=== PATIENT | female | born 1995 | race Caucasian/White ===

== ENCOUNTER → 2017-06-22 09:56 | Outpatient (CLI) | payer OTHER, MEDICAID, SELFPAY ==
[2017-06-22 11:28] LABS: Thyroid Stimulating Hormone 0.93 uIU/ml (0.358-3.740)
== END ==
PROVIDERS: Visit Provider Obstetrics & Gynecology
DX: O92.6 Galactorrhea (principal)
CPT/HCPCS: 36415; 84146; 84443

== ENCOUNTER → 2017-07-07 09:54 | Outpatient (CLI) | payer OTHER, SELFPAY ==
--- NOTE | 2017-07-07 09:56 | US_ITS ---
US breast RT complete INDICATION: Right breast pain and tenderness ORDERING PHYSICIAN: Jonathan Delgado MD PATIENT AGE: 21 years FINDINGS: There is a 7 mm and a 5 mm benign-appearing cysts at the 10:00 region. No solid lesions evident. No suspicious lesions apparent. Small nodes are present in the axilla. IMPRESSION: 7 mm and 5 mm benign-appearing cyst BI-RADS Category: 2 Benign Finding(s) Follow-up suggested as clinically warranted (A letter has been sent to the patient regarding results of the study.)
== END ==
PROVIDERS: Family Provider Family Medicine; PCP Family Medicine; Visit Provider Obstetrics & Gynecology
DX: N64.4 Mastodynia (principal)
CPT/HCPCS: 76641

== ENCOUNTER 2019-06-16 12:17 | Outpatient (CLI) | payer OTHER, SELFPAY ==
[2019-06-16 12:33] VITALS: BMI 27.4
== END 2019-06-16 12:53 | disposition home or self-care (01) ==
LOC: UTC.OUT 12:18
PROVIDERS: PCP Internal Medicine Adolescent Medicine; Visit Provider Nurse Practitioner
DX: Z11.1 Encounter for screening for respiratory tuberculosis (principal)
CPT/HCPCS: 86580

== ENCOUNTER 2019-11-06 01:05 | Emergency (ER) | payer OTHER, SELFPAY ==
[2019-11-06 01:20] VITALS: BP 135/98; PULSE 88; RESP 16; TEMP 36.7; O2SAT 97; BMI 25.7
--- NOTE | 2019-11-06 01:30 | CT_ITS ---
PROCEDURE: CT ABDOMEN PELVIS W CON CLINICAL INDICATION: N/V Nausea and vomiting COMPARISON: No exams were available for comparison TECHNIQUE: IV Contrast: 75ML OPTIRAY 350 Oral Contrast None Axial images obtained with sagittal and coronal reformats. All CT scans at the facility use one or more dose reduction, viz: automated exposure control, ma/kV adjustment per patient size (including targeted exams where dose is matched to indication, i.e. head), or iterative reconstruction technique. FINDINGS: LOWER THORAX: There is a 3 mm noncalcified nodule in the right middle lobe. Minimal atelectatic or fibrotic changes are present in the lung bases. ABDOMEN & PELVIS: The liver, spleen, adrenal glands, pancreas, and kidneys have an unremarkable appearance. No radiopaque gallstones. No intestinal obstruction or free air. No evidence of appendicitis or diverticulitis. The low-density changes of the endometrium are slightly prominent. Correlation with patient's phase of menstruation suggested. There are few small inguinal nodes. There is minimal stranding of the subcutaneous fat in the lower anterior abdominal wall which may be related to prior . The gastric mucosa slightly prominent in the cardia and fundus of the stomach which is nonspecific and may be due to nondistention. There is suggestion of minimal mucosal thickening involving the terminal ileum. No acute bony findings. There is minimal lumbar curvature convex left. There is a tiny umbilical hernia containing fat. IMPRESSION: 1. Questionable minimal mucosal thickening involving the terminal ileum and gastric fundus and cardia. Gastroenteritis is considered. 2. 3 mm nodule right middle lobe. If the patient does not have known cancer, follow-up should be based on clinical information because of low risk cancer in this age group. This cyst 3. Is no evidence of renal or ureteral calculi. No evidence of appendicitis Dictated b Kaden Mason MD 11/06/2019 06:11 Kaden Mason MD in [place] 11/06/2019 06:11
[2019-11-06 01:34] LABS: Microscopic, Urine URINE MICROSCOPIC (MICROSCOPIC)
[2019-11-06 01:37] LABS: Appearance,Urine CLEAR (Clear); Basophils % 0.4 % (0.1-2.0); Bilirubin,Urine Negative (Negative); Blood, Urine Negative (Negative); Color,Urine YELLOW (Yellow); Eosinophils # 0.2 K/mm3 (0.0-0.4); Eosinophils % 1.7 % (0.1-12.0); Glucose,Urine (UA) Negative (Negative); Hematocrit 42.2 % (37.0-47.0); Hemoglobin 15.3 g/dL (12.2-16.2); Ketones,Urine Negative (Negative); Leukocyte Esterase,Urine Negative (Negative); Lymphocytes # 3.2 K/mm3 (0.7-4.5); Lymphocytes % 30.4 % (10-50); Mean Corpuscular HGB Conc 36.2 g/dL (31.8-35.4); Mean Corpuscular Hemoglobin 30.6 pg (27.0-31.2); Mean Corpuscular Volume 84.5 fl (81-99); Mean Platelet Volume 7.9 fl (7.4-10.4); Monocytes # 0.4 K/mm3 (0.1-1.0); Neutrophils # 6.8 K/mm3 (1.8-7.8); Neutrophils % 63.5 % (37.0-80.0); Nitrate,Urine Negative (Negative); Platelet Count 293 K/mm3 (142-424); Protein,Urine Negative (Negative); Red Blood Count 4.99 M/mm3 (4.20-5.40); Red Cell Distribution Width 12.8 % (11.5-17.5); Urobilinogen,Urine 0.2 EU/dl (0.2); White Blood Count 10.7 K/mm3 (4.8-10.8)
--- NOTE | 2019-11-06 01:37 | HMH.EDNVD ---
ED Disposition Clinical Impression: Chills without fever Disposition: Home, Self-Care Condition on Discharge: Good Instructions: DI for Nausea -- Adult Additional Instructions: fluids and call pcp for follow up Referrals: Alin Cole MD [Primary Care Provider] - - Critical Care Critical Care Time: No Attestation: On , the high probability of a clinically significant, sudden or life threatening deterioration of the following system(s) required my full and direct attention, intervention and personal management. The time I documented below is in addition to time spent performing reported procedures but includes the following listed in this critical care notation. Medical Decision Making - Medical Records Medical records reviewed: Yes: I reviewed the patient's medical records. - Mayito Inquiry Pt receiving controlled substance: No Vital Signs: 11/06/19 01:20 Temperature 98.1 F Temperature Source Oral Pulse Rate [Right Brachial] 88 Respiratory Rate 16 Blood Pressure [Right Arm] 135/98 H Blood Pressure Mean [Right Arm] 110 Blood Pressure Source [Right Arm] Automatic Cuff Blood Pressure Position [Right Arm] Sitting 02 Sat by Pulse Oximetry 97 Oxygen Delivery Method Room Air - Lab Data Lab results reviewed: Yes: I reviewed the patient's lab results. Lab Results 11/06/19 01:20: Urine Color Yellow, Urine Appearance Clear, Urine pH 7.0, Ur Specific [place] 1.010, Urine Protein Negative, Urine Glucose (UA) Negative, Urine Ketones Negative, Urine Blood Negative, Urine Nitrate Negative, Urine Bilirubin Negative, Urine Urobilinogen 0.2, Ur Leukocyte Esterase Negative, Urine WBC 3-5, Ur Squamous Epith Cells 3-5, Urine Bacteria 1+ 11/06/19 01:20: WBC 10.7, RBC 4.99, Hgb 15.3, Hct 42.2, MCV 84.5, MCH 30.6, MCHC 36.2 H, RDW 12.8, Plt Count 293, MPV 7.9, Neut % (Auto) 63.5, Lymph % (Auto) 30.4, [place] % (Auto) 4.0, Eos % (Auto) 1.7, Baso % (Auto) 0.4, Neut # (Auto) 6.8, Lymph # (Auto) 3.2, [place] # (Auto) 0.4, Eos # (Auto) 0.2, Baso # (Auto) 0.0 08/11/20 01:20: Urine HCG, Qual Negative 11/06/19 01:20: Sodium 140, Potassium 3.5, Chloride 100, Carbon Dioxide 28, Anion Gap 15.5 H, BUN 12, Creatinine 0.80, Estimated Creat Clear 114, Estimated GFR 87, Est GFR ( Amer) 105, Glucose 97, Calcium 9.5, Total Bilirubin 0.6, AST 24, ALT 16, Alkaline Phosphatase 77, Total Protein 8.6 H, Albumin 4.8, Globulin 3.8 H, Albumin/Globulin Ratio 1.3, Amylase 131 H, Lipase 193 11/06/19 01:20: ESR 22 H 11/06/19 01:20: C-Reactive Protein 1.1 Result diagrams: 11/06/19 01:20 11/06/19 01:20 Orders (Tests/Meds): ED MEDICATIONS Discontinued Medications Generic Name Dose Route Start Last Admin Trade Name Freq PRN Reason Stop Dose Admin Ioversol 75 ml 11/06/19 03:03 11/06/19 03:04 Rad-Optiray 350 100ml Vial IV 11/06/19 03:04 75 ml ONCE ONE Administration Protocol Sodium Chloride 10 ml 11/06/19 03:03 11/06/19 03:04 Rad-Saline Flush 10ml Syringe IV 11/06/19 03:04 10 ml ONCE ONE Administration ORDERS Category Date Time Status CT abdomen pelvis w con Stat Cat Scan 11/06/19 01:30 Taken Urine Culture Stat Micro 11/06/19 01:46 Ordered - CT Data CT Scan: Abdomen, Pelvis Time Received: 03:[address] Reviewed: Yes: I have viewed the radiologist's interpretation Preliminary Findings: Normal/NAD Nausea/Vomiting/Diarrhea HPI - General Chief complaint: Nausea/Vomiting/Diarrhea Stated complaint: Vomiting,Dizziness Time Seen by Provider: 11/06/19 01:30 Mode of Arrival: Family Vehicle Source of Information: Patient, Spouse, Medical Record Limitations: No Limitations Description of Symptoms (Recalled from ER Triage Doc. by RN): PT HAS INTERMITTENTLY HAD N/V RECENTLY DURING THE LAST WEEK. ACCORDING TO PATIENT, SHE HAS HAD NO PAIN, VOIDS EASILY AND NO ISSUES WITH BM. CURRENTLY ACTIVELY TRYING TO 'GET ' BY NOT USING BC METHODS. DIZZINESS REPORTED, DENIES EAR PAIN OR DISCOMFORT. HAD AN EPISODE OF CHIL
[2019-11-06 01:41] LABS: Alanine Aminotransferase 16 U/L (12-78); Albumin Level 4.8 g/dl (3.5-5.0); Albumin/Globulin Ratio 1.3 (1.1-1.8); Alkaline Phosphatase 77 U/L (38-126); Amylase 131 U/L (30-110); Anion Gap 15.5 mEq/L (5-15); Aspartate Amino Transferase 24 U/L (14-36); Bilirubin,Total 0.6 mg/dl (0.2-1.3); Blood Urea Nitrogen 12 mg/dl (7-17); Calcium 9.5 mg/dl (8.4-10.2); Carbon Dioxide 28 mmol/L (22.0-30.0); Chloride 100 mmol/L (98-107); Creatinine Clearance Estimated 114 mL/min (50-200); Estimated Glomerular Filt Rate 87 ml/min (>60); GFR (African American) 105 ML/MIN (>60); Globulin 3.8 g/dL (1.3-3.2); Glucose 97 mg/dl (74-100); Lipase 193 U/L (23-300); Potassium 3.5 mmoL/L (3.5-5.1); Sodium 140 mmol/L (136-145); Total Protein,Serum 8.6 g/dl (6.3-8.2)
[2019-11-06 01:45] LABS: Bacteria,Urine 1+ /lpf; Urine Pregnancy, HCG Qual. Negative (Negative)
[2019-11-06 01:56] LABS: C-Reactive Protein 1.1 mg/L (0-4)
[2019-11-06 03:01] LABS: Erythrocyte Sedimentation Rate 22 mm/hr (0-20)
[2019-11-06 03:17] VITALS: BP 121/75; PULSE 69; RESP 16; TEMP 536.6; TEMP 998; O2SAT 95
== END 2019-11-06 03:19 | disposition home or self-care (01) ==
PROVIDERS: Emergency Provider Emergency Medicine; PCP Internal Medicine Adolescent Medicine
DX: R68.83 Chills (without fever) (principal); R11.2 Nausea with vomiting, unspecified; R42 Dizziness and giddiness; Z88.0 Allergy status to penicillin
CPT/HCPCS: 74177; 80053; 81001; 81025; 82150; 83690; 85025; 85651; 86140; 87086; 99283; Q9967

== ENCOUNTER → 2020-10-07 17:32 | Outpatient (CLI) | payer OTHER, SELFPAY ==
[2020-10-07 19:31] LABS: HCG,Quantitative 1108 mIU/ml (0-5.42)
== END ==
PROVIDERS: Visit Provider Obstetrics & Gynecology
DX: Z32.01 Encounter for pregnancy test, result positive (principal)
CPT/HCPCS: 84702

== ENCOUNTER → 2020-10-09 14:18 | Outpatient (CLI) | payer OTHER, SELFPAY ==
[2020-10-09 15:32] LABS: HCG,Quantitative 2468 mIU/ml (0-5.42)
== END ==
PROVIDERS: Visit Provider Obstetrics & Gynecology
DX: Z34.90 Encounter for supervision of normal pregnancy, unspecified, unspecified trimester (principal)
CPT/HCPCS: 36415; 84702

== ENCOUNTER → 2020-10-20 13:35 | Outpatient (CLI) | payer OTHER, SELFPAY ==
--- NOTE | 2020-10-20 13:36 | US_ITS ---
PROCEDURE: US OB <= 14 WEEKS FETUS CLINICAL INDICATION: Dates Early Ob ultrasound for dates COMPARISON: No exams were available for comparison FINDINGS: An intrauterine gestational sac is present with a pole with a crown-rump length of 0.23cm correlating to gestational age of 5weeks 6days. heart tones are not demonstrated. Yolk sac is noted. Unremarkable adnexa IMPRESSION: Intrauterine gestational sac noted with suspected pole measuring 5 weeks 6 days but no heart tones. Cannot confirm viability at this. Follow-up ultrasound and beta HCG suggested. Estimated due date by Ultrasound is 06/16/2021 Dictated by: Kaden Mason MD 10/20/2020 18:12 Kaden Mason MD in [place] 10/20/2020 18:12
== END ==
PROVIDERS: PCP Internal Medicine Adolescent Medicine; Visit Provider Obstetrics & Gynecology
DX: Z34.90 Encounter for supervision of normal pregnancy, unspecified, unspecified trimester (principal); O26.899 Other specified pregnancy related conditions, unspecified trimester; R10.9 Unspecified abdominal pain
CPT/HCPCS: 36415; 76801; 84702

== ENCOUNTER → 2020-11-07 12:53 | Outpatient (CLI) | payer OTHER, SELFPAY ==
--- NOTE | 2020-11-07 12:53 | US_ITS ---
PROCEDURE: US OB <= 14 WEEKS FETUS CLINICAL INDICATION: dates Evaluate for dates and viability COMPARISON: US US OB <= 14 WEEKS FETUS from 10/20/2020 FINDINGS: There is an intrauterine gestational sac once again noted. Yolk sac is noted but appears collapsed. There may be a small pole with a crown-rump length 0.21 cm correlating to gestational age of 5 weeks 6 days. heart tones are however not identified. Cannot confirm viability. Please correlate with beta HCG levels. No adnexal mass or cul-de-sac fluid. IMPRESSION: There is an intrauterine gestational sac with a partially collapsed yolk sac. What appears to represent a pole is noted measuring 5 weeks 6 days but no heart tones are present. Cannot confirm viability. Dictated by: Kaden Mason MD 11/07/2020 16:14 Kaden Mason MD in [place] 11/07/2020 16:14
== END ==
PROVIDERS: PCP Internal Medicine Adolescent Medicine; Visit Provider Obstetrics & Gynecology
DX: Z34.90 Encounter for supervision of normal pregnancy, unspecified, unspecified trimester (principal)
CPT/HCPCS: 36415; 76801; 84702

== ENCOUNTER → 2020-11-12 10:52 | Outpatient (CLI) | payer OTHER, SELFPAY ==
[2020-11-12 13:14] LABS: Basophils % 0.4 % (0.1-2.0); Eosinophils # 0.1 K/mm3 (0.0-0.4); Eosinophils % 0.8 % (0.1-12.0); Hematocrit 40.8 % (37.0-47.0); Hemoglobin 13.9 g/dL (12.2-16.2); Lymphocytes # 1.6 K/mm3 (0.7-4.5); Lymphocytes % 21.5 % (10-50); Mean Corpuscular HGB Conc 34.1 g/dL (31.8-35.4); Mean Corpuscular Hemoglobin 29.2 pg (27.0-31.2); Mean Corpuscular Volume 85.6 fl (81-99); Mean Platelet Volume 8.6 fl (7.4-10.4); Monocytes # 0.3 K/mm3 (0.1-1.0); Monocytes % 3.3 % (1.7-9.3); Neutrophils # 5.7 K/mm3 (1.8-7.8); Platelet Count 294 K/mm3 (142-424); Red Blood Count 4.76 M/mm3 (4.20-5.40); Red Cell Distribution Width 12.8 % (11.5-17.5); White Blood Count 7.7 K/mm3 (4.8-10.8)
== END ==
PROVIDERS: Visit Provider Obstetrics & Gynecology
DX: Z01.812 Encounter for preprocedural laboratory examination (principal); Z11.52 Encounter for screening for COVID-19; O02.1 Missed abortion
CPT/HCPCS: 36415; 85025; 86850; U0003

== ENCOUNTER 2020-11-14 09:54 | Day surgery (SDC) | payer OTHER, SELFPAY ==
[2020-11-11 11:34] VITALS: BMI 23.8
[2020-11-14] VITALS (8 sets, daily range): BP systolic 102–125; BP diastolic 56–75; PULSE 70–81; RESP 16–20; TEMP 36.4–37.1; O2SAT 87–100
--- NOTE | 2020-11-14 10:01 | US_ITS ---
PROCEDURE: US TRANSVAGINAL CLINICAL INDICATION: missed COMPARISON: US US OB <= 14 WEEKS FETUS from 11/07/2020 FINDINGS: The uterus is retroverted and contains a gestational sac with a pole. The crown-rump length is 3.6 mm correlating to gestational age of 6 weeks 1 day. The sac has more of a teardrop shaped than the normal round shape. No heart tones are evident. There is heterogeneous echogenicity along the anterior aspect of the sac and may be due to subchorionic hemorrhage. Unremarkable adnexa IMPRESSION: Nonviable intrauterine gestation with some subchorionic hemorrhage Dictated by: Kaden Mason MD 11/14/2020 13:10 Kaden Mason MD in [place] 11/14/2020 13:10
--- NOTE | 2020-11-14 11:45 | HMH.ANESCL ---
[facility] Anesthesia Checklist - Patient Identification Patient Identification: Arm Band - Structural Data Admitted From: Home Planned Operative Procedure/s: D&C with Berkely Suction Consent for Planned Operative Procedure(s) Verified: Yes Verified Documents: Surgical Consent, History and Physical - NPO Status Verified Time NPO: 00:00 - Additional verifications Anesthesia Reactions: No Hx Blood Transfusions: No Blood Transfusion Reaction: No - Airway Assessment C-Spine Mobility Assessed: Yes (mp2) TMJ Mobility Assessed: Yes Dentition: Good Dentition - Neurological Assessment Level of Consciousness: Awake, Alert - Anesthesia Plan Anesthesia Risk discussed: Yes Anesthesia Plan: Verified ASA Class: I Anesthesia Type: General [facility] History I have reviewed the patient's past medical history: Yes Medical History: Reports:: Depression Denies:: Cancer, Diabetes Mellitus Type 1, Diabetes Mellitus Type 2, Internal Pacemaker, MRSA, Seizures *Have you ever received a pneumonia vaccine?: No *Have you received a flu vaccine this season?: No Other Medical History: Denies: Blood Transfusion Reaction Anesthesia experience/problems:: nac Other Surgeries: Yes: , Other. No: Pacemaker Amputation: No Fractures: No - *Social History Last grade of school completed: High school graduate Smoking Status: Never smoker Alcohol Intake: current Alcohol Intake Frequency:: holidays/special occasions only Substance Use Type: denies use *Occupational Status:: employed Housing: house Household Members: spouse, family, children *Travel in the last 8 weeks: None - Psychiatric History Pschychiatric History:: Reports:: Depression Family Hx:: Hypertension
--- NOTE | 2020-11-14 13:18 | HMH.OPNOTE ---
Date of procedure: 11/14/20 Pre-op Diagnosis:: missed , 5 07/02 Post-op Diagnosis:: same Procedure performed:: Suction Dilation and Curettage Surgeon:: Brittaney Bella MD PRODUCTION SUPPORT SPECIALIST:: Braeden Hernandez Anesthesia: GETA Estimated blood loss (mL): 5 Operative findings:: uterine contents consistent with products of conception Operative note:: The patient was taken to the OR and general anesthesia administered without difficulty. She was prepped and draped in lithotomy position. Wade retractors were used to visualize the cervix and a single tooth tenaculum placed on the anterior lip of the cervix. The cervix was passively dilated until it could accomodate the suction curette. A size # 7 curved curette was used to evacuate the contents of the uterus. Once the products of conception had been evacuated, sharp curettage was used to ensure that no products remained within the uterine cavity. All instruments were then removed from the patients vagina, she was taken out of lithotomy position, awakened from anesthesia and taken to the PACU in stable condition. EBL: 5cc Condition: stable Disposition: PACU Specimens:: products of conception Complications:: none
--- NOTE | 2020-11-14 13:26 | P.PN_ITS ---
[facility] Anesthesia Record Part I Intake, IV Amount: 1,000 Estimated blood loss (mL): 5 Urine output (mL): 0 Blood Pressure: 104/60 SaO2: 93 Pulse Rate: 77 Respiratory Rate: 16 Temperature: 98 F Patient is:: Drowsy, Stable Stable to PACU at:: 13:10
--- NOTE | 2020-11-16 10:59 | P.PN_ITS ---
[facility] Anesthesia Record Part II Discharge Time: 13:40 Destination: Surgical Day Care (OP Surgery) PACU nurse assessment reviewed?: Yes Patient Condition:: Good Anesthesia Complications:: None Swallowing reflex intact?: Yes Cyanosis?: No Blood Pressure: 121/75 Pulse Rate: 78 Temperature: 98.2 F Mental Status: Alert & Oriented Pain level:: 2 Nausea and/or vomitting:: None Intake, IV Amount: 30
[2020-11-16 11:00] VITALS: BP 121/75; PULSE 78; TEMP 36.8
== END 2020-11-14 14:36 | disposition home or self-care (01) ==
LOC: OR 09:55
PROVIDERS: PCP Internal Medicine Adolescent Medicine; Visit Provider Obstetrics & Gynecology
PROC: (CPT 59820; principal; 2020-11-14 12:30)
DX: O02.1 Missed abortion (principal); N96 Recurrent pregnancy loss; Z98.891 History of uterine scar from previous surgery
CPT/HCPCS: 59820; 76830; J2405

== ENCOUNTER → 2020-11-18 14:50 | Outpatient (CLI) | payer OTHER, SELFPAY ==
[2020-11-18 15:09] LABS: Basophils % 0.8 % (0.1-2.0); Eosinophils # 0.2 K/mm3 (0.0-0.4); Eosinophils % 3.6 % (0.1-12.0); Hematocrit 35.9 % (37.0-47.0); Hemoglobin 12.2 g/dL (12.2-16.2); Lymphocytes # 1.5 K/mm3 (0.7-4.5); Lymphocytes % 29.6 % (10-50); Mean Corpuscular HGB Conc 34.1 g/dL (31.8-35.4); Mean Corpuscular Hemoglobin 30.2 pg (27.0-31.2); Mean Corpuscular Volume 88.5 fl (81-99); Mean Platelet Volume 8.5 fl (7.4-10.4); Monocytes # 0.3 K/mm3 (0.1-1.0); Neutrophils # 3.1 K/mm3 (1.8-7.8); Platelet Count 286 K/mm3 (142-424); Red Blood Count 4.05 M/mm3 (4.20-5.40); Red Cell Distribution Width 12.7 % (11.5-17.5)
== END ==
LOC: LAB 14:51 → LAB.DROPOF 14:51
PROVIDERS: Visit Provider Obstetrics & Gynecology
DX: O02.1 Missed abortion (principal)
CPT/HCPCS: 85025

== ENCOUNTER 2023-03-30 10:43 | Emergency (ER) | payer OTHER, SELFPAY ==
[2023-03-30 10:45] VITALS: BP 127/67; PULSE 87; RESP 20; TEMP 36.8; O2SAT 97; BMI 23.0
--- NOTE | 2023-03-30 10:54 | PC.NURSE ---
Dr. Cutler at to speak with pt/
[2023-03-30 11:17] LABS: Microscopic, Urine URINE MICROSCOPIC (MICROSCOPIC)
[2023-03-30 11:25] LABS: Alanine Aminotransferase 19 U/L (12-78); Albumin Level 4.1 g/dl (3.5-5.0); Albumin/Globulin Ratio 1.3 (1.1-1.8); Alkaline Phosphatase 50 U/L (38-126); Anion Gap 9.6 mEq/L (5-15); Aspartate Amino Transferase 27 U/L (14-36); Bilirubin,Total 0.5 mg/dl (0.2-1.3); Blood Urea Nitrogen 7 mg/dl (7-17); Calcium 8.4 mg/dl (8.4-10.2); Carbon Dioxide 24 mmol/L (22.0-30.0); Chloride 105 mmol/L (98-107); Creatinine Clearance Estimated 110 mL/min (50-200); Estimated Glomerular Filt Rate 99 ml/min (>60); GFR (African American) 120 ML/MIN (>60); Globulin 3.1 g/dL (1.3-3.2); Glucose 119 mg/dl (74-100); Lipase 72 U/L (23-300); Potassium 3.6 mmoL/L (3.5-5.1); Sodium 135 mmol/L (136-145); Total Protein,Serum 7.2 g/dl (6.3-8.2)
[2023-03-30 11:26] LABS: Basophils # 0.1 K/mm3 (0-0.2); Basophils % 0.5 % (0.1-2.0); Eosinophils # 0.1 K/mm3 (0.0-0.4); Eosinophils % 0.8 % (0.1-12.0); Hematocrit 39.3 % (37.0-47.0); Hemoglobin 13.1 g/dL (12.2-16.2); Lymphocytes # 1.9 K/mm3 (0.7-4.5); Mean Corpuscular HGB Conc 33.3 g/dL (31.8-35.4); Mean Corpuscular Hemoglobin 29.6 pg (27.0-31.2); Mean Corpuscular Volume 88.7 fl (81-99); Mean Platelet Volume 9.1 fl (7.4-10.4); Monocytes # 0.3 K/mm3 (0.1-1.0); Monocytes % 3.6 % (1.7-9.3); Neutrophils # 6.6 K/mm3 (1.8-7.8); Neutrophils % 74.1 % (37.0-80.0); Platelet Count 253 K/mm3 (142-424); Red Blood Count 4.43 M/mm3 (4.20-5.40); Red Cell Distribution Width 13.2 % (11.5-17.5)
[2023-03-30 11:30] LABS: C-Reactive Protein 3.3 mg/L (0-4)
[2023-03-30 11:32] LABS: Bacteria,Urine 1+ /lpf; RBC,Urine Occasional #/hpf (0-3); Squamous Epithelial Cell,Urine 20-50 #/hpf (0-5); WBC,Urine 20-50 #/hpf (0-3)
--- NOTE | 2023-03-30 11:42 | ED_ITS ---
Discharge Plan Disposition Patient Disposition: Home, Self-Care Prescriptions Prescriptions: New ondansetron 4 mg tablet,disintegrating 4 mg PO Q6H PRN (Reason: nausea and vomiting) Qty: 10 1RF metoclopramide HCl [Reglan] 10 mg tablet 10 mg PO Q6H PRN (Reason: nausea and vomiting) Qty: 20 0RF No Action escitalopram oxalate [Lexapro] 10 mg tablet 10 mg PO DAILY Qty: 30 5RF clonazepam [Klonopin] 0.5 mg tablet 0.25 mg PO Q8H Qty: 30 5RF Referrals Follow up/Referrals: Francisco J Armenta MD [Primary Care Provider] - See instructions Activity Restrictions/Add. Instructions Additional Instructions/Restrictions: Call your family doctor to establish care for this visit to the emergency department and schedule follow-up within 48 hours to ensure improvement. If you have any worsening of your condition or any other concerning signs or symptoms, return to the emergency department or your primary care doctor for further evaluation. Start with Reglan for nausea. If that does not work and you vomit the Reglan, you can proceed with Zofran. Try not to mix these medications. Clinical Impressions Clinical Impression: Abdominal pain affecting Instructions Patient Instructions: DI for Acute Abdominal Pain Discharge ED Provider: Tung Cutler General Adult [facility] General Chief complaint: Abdominal Pain Stated complaint: abd pain Time Seen by Provider: 03/30/23 11:00 Mode of Arrival: Ambulatory Source of Information: Patient Limitations: No Limitations Description of Symptoms (Recalled from ER Triage Doc. by RN): pt to ed approx 7w c/o abd pain that radiates into her pelvis. pt denies vaginal bleeding. Related Data Previous Rx's Medication Instructions Recorded clonazepam 0.5 mg tablet (Klonopin) 0.25 mg PO Q8H #30 tabs 02/09/23 escitalopram oxalate 10 mg tablet 10 mg PO DAILY #30 tabs 02/09/23 (Lexapro) metoclopramide HCl 10 mg tablet 10 mg PO Q6H PRN nausea and 03/30/23 (Reglan) vomiting #20 tabs ondansetron 4 mg disintegrating 4 mg PO Q6H PRN nausea and 03/30/23 tablet vomiting #10 tabs Allergies Allergy/AdvReac Type Severity Reaction Status Date / Time Iodinated Contrast Media Allergy Mild Verified 02/09/23 10:31 Penicillins [PENICILLINS] Allergy Unknown Verified 02/09/23 10:31 [facility] Disclaimer: The information contained in this section may have been updated after the patient was seen, as this information can be updated by other users. Social History Smoking Status: Never smoker alcohol intake: current substance use type: denies use current occupational status: employed Travel in the last 8 weeks: None household members: spouse, family and children housing: house current occupational exposures/hazards: No caffeine: Yes ROS Obtained: Yes All systems reviewed & no additional complaints except as documented Physical Exam General General appearance: alert and in no apparent distress Head Head exam: atraumatic and normocephalic Eye Eye exam: Present normal appearance, PERRL and EOMI ENT ENT exam: Present mucous membranes moist Neck Neck exam: Present normal inspection, full ROM and trachea midline Respiratory Respiratory exam: Absent respiratory distress, wheezes, stridor, accessory muscle use or prolonged expiratory phase Cardiovascular Cardiovascular exam: Present normal rhythm Abdominal Exam Abdominal exam: Present soft; Absent distention, tenderness, guarding, rebound or rigidity Extremities Exam Extremities exam: Absent edema Neurological Exam Neurological exam: Present alert, oriented X3, CN II-XII intact and normal gait; Absent motor sensory deficit Skin Skin exam: Present warm and dry; Absent diaphoresis or erythema Medical Decision Making Medical Records Medical records reviewed: Yes I reviewed the patient's medical records. Mayito Inquiry Pt receiving controlled substance: No Mayito was queried for this patient: No Vital Signs: 03/30/23 10:45 Temperature 98.2 F Temperature Source Oral Pulse Rate [Left Radial] 87 Respiratory Rate 20 Blood Pressure [Right Arm] 127/67 Blood Pressure Mean [Right Arm] 87 02 Sat by Pulse Oximetry 97 Oxygen Delivery Method Room Air Lab Data Lab Results 03/30/23 10:50: WBC 9.0, RBC 4.43, Hgb 13.1, Hct 39.3, MCV 88.7, MCH 29.6, MCHC 33.3, RDW 13.2, Plt Count 253, MPV 9.1, Neut % (Auto) 74.1, Lymph % (Auto) 21.0, [place] % (Auto) 3.6, Eos % (Auto) 0.8, Baso % (Auto) 0.5, Neut # (Auto) 6.6, Lymph # (Auto) 1.9, [place] # (Auto) 0.3, Eos # (Auto) 0.1, Baso # (Auto) 0.1, Sodium 135 L, Potassium 3.6, Chloride 105, Carbon Dioxide 24, Anion Gap 9.6, BUN 7, Creatinine 0.70, Estimated Creat Clear 110, Estimated GFR 99, Est GFR ( Amer) 120, Glucose 119 H, Calcium 8.4, Total Bilirubin 0.5, AST 27, ALT 19, Alkaline Phosphatase 50, C-Reactive Protein 3.3, Total Protein 7.2, Albumin 4.1, Globulin 3.1, Albumin/Globulin Ratio 1.3, Lipase 72, HCG, Quant [id number] H 03/30/23 11:10: Urine Color Yellow, Urine Appearance Clear, Urine pH 6.0, Ur Specific [place] 1.025, Urine Protein Negative, Urine Glucose (UA) Negative, Urine Ketones Negative, Urine Blood Negative, Urine Nitrate Negative, Urine Bilirubin Negative, Urine Urobilinogen 0.2, Ur Leukocyte Esterase Trace, Urine RBC Occasional, Urine WBC 20-50, Ur Squamous Epith Cells 20-50, Urine Bacteria 1+ 03/30/23 10:50 03/30/23 10:50 Orders (Tests/Meds): ORDERS Category Date Time Status Beta HCG, Quant [HCG,Quantitative] Stat Lab 03/30/23 10:50 Completed CBC w/Auto Diff [Complete Blood Count Auto Diff] Stat Lab 03/30/23 10:50 Completed CMP [Comprehensive Metabolic Panel] Stat Lab 03/30/23 10:50 Completed CRP [C-Reactive Protein] Stat Lab 03/30/23 10:50 Completed Lipase Stat Lab 03/30/23 10:50 Completed UA [Urinalysis and Microscopic] Stat Lab 03/30/23 11:10 Completed Urine Culture Stat Micro 03/30/23 11:10 Received Medical Decision Narrative: 27-year-old female 7 weeks presenting with right lower quadrant abdom inal pain. To be noted the patient is currently and not had any abdominal surgeries complicating picture. History was obtained via conversation with patient and significant other. On arrival, patient hemodynamically stable, alert, oriented x4, appropriate, GCS 15, moving all extremities spontaneously, pupils equal and reactive to light. Full physical exam performed and significant for well-appearing woman in no acute distress. She does have right lower quadrant abdominal pain without rebound, rigidity, or guarding. Abdomen is soft. No flank tenderness. Differential includes , round ligament pain, ovarian cyst, ovarian torsion, postimplantation pain, spontaneous , ectopic , appendicitis, among others. Workup independently interpreted and significant for uptrending beta quant. Urinalysis nonconcerning and no leukocytosis or CRP elevation. Bedside [id number] ultrasound with gestational sac in the uterus with pole and cardiac flicker. Formal ultrasound transvaginally was considered, but deemed unnecessary given findings today. No evidence of free fluid in the pelvis. On reevaluation, patient resting comfortably bed. Given patient presentation, workup, history, this most likely represents abdominal pain in . Yamile use patient at baseline without signs or symptoms of clinical decompensation, deemed appropriate for discharge. Results were relayed to patient who voiced understanding and were agreeable to outpatient management and follow up. At the time of discharge the patient was hemodynamically stable, tolerating PO, and mobilizing appropriately. Procedures Limited Ultrasound Indication:: Limited OB ultrasound Indication: Positive test, abdominal pain Identified structures: -Uterus -Left adnexa -Right adnexa -Pouch of [place] Findings: Uterus: Definitive IUP FHR: Cardiac flicker Right adnexa: Normal Left adnexa: Normal Cul de sac: Absent Impression: -IUP: Present - heart rate: Flexor -Ectopic : Absent -Free fluid: Absent Images were saved to permanent archive The study was technically adequate CPT Transabdominal: 61359-21 This study was performed by me, and I personally interpreted all images/videos. Based on my clinical judgement, these images were adequate and did not necessitate further imaging. Critical Care Critical Care Time Critical Care Time: No
[2023-03-30 11:45] LABS: Appearance,Urine CLEAR (Clear); Bilirubin,Urine Negative (Negative); Blood, Urine Negative (Negative); Color,Urine YELLOW (Yellow); Glucose,Urine (UA) Negative (Negative); Ketones,Urine Negative (Negative); Leukocyte Esterase,Urine TRACE (Negative); Nitrate,Urine Negative (Negative); Protein,Urine Negative (Negative); Specific Gravity, Urine 1.025 (1.005-1.030); Urobilinogen,Urine 0.2 EU/dl (0.2)
[2023-03-30 11:56] LABS: HCG,Quantitative 64327 mIU/ml (0-5.42)
--- NOTE | 2023-03-30 12:49 | PC.NURSE ---
Dr. Cutler at for u/s
[2023-03-30 13:04] VITALS: BP 127/63; PULSE 72; RESP 18; TEMP 36.7; O2SAT 98
--- NOTE | 2023-04-01 12:46 | PC.NURSE ---
urine culture results show >10,000 colonies of bacteria, aware with no further action at this time
== END 2023-03-30 13:04 | disposition home or self-care (01) ==
PROVIDERS: Emergency Provider Emergency Medicine; PCP Internal Medicine Adolescent Medicine
DX: O26.891 Other specified pregnancy related conditions, first trimester (principal); R10.2 Pelvic and perineal pain; Z3A.01 Less than 8 weeks gestation of pregnancy
CPT/HCPCS: 80053; 81001; 83690; 84702; 85025; 86140; 87086; 99285

== ENCOUNTER 2023-04-05 14:15 | Outpatient (CLI) | payer OTHER, SELFPAY ==
[2023-04-05 16:37] LABS: HCG,Quantitative 105320 mIU/ml (0-5.42)
== END 2023-04-05 23:59 ==
LOC: LAB 14:16
PROVIDERS: Visit Provider Obstetrics & Gynecology
DX: N92.6 Irregular menstruation, unspecified (principal)
CPT/HCPCS: 36415; 84144; 84702

== ENCOUNTER 2023-04-13 16:35 | Outpatient (CLI) | payer OTHER, SELFPAY | END 2023-04-13 23:59 | LOC: LAB.DROPOF 16:36 | PROVIDERS: PCP Obstetrics & Gynecology; Visit Provider Obstetrics & Gynecology | DX: Z34.91 Encounter for supervision of normal pregnancy, unspecified, first trimester (principal); Z3A.09 9 weeks gestation of pregnancy | CPT/HCPCS: 87086 ==

== ENCOUNTER 2023-04-30 10:34 | Outpatient (CLI) | payer OTHER, SELFPAY ==
[2023-04-30 11:24] LABS: Basophils % 0.4 % (0.1-2.0); Eosinophils # 0.1 K/mm3 (0.0-0.4); Eosinophils % 1.5 % (0.1-12.0); Hematocrit 37.8 % (37.0-47.0); Hemoglobin 13.3 g/dL (12.2-16.2); Lymphocytes # 1.4 K/mm3 (0.7-4.5); Lymphocytes % 15.8 % (10-50); Mean Corpuscular HGB Conc 35.2 g/dL (31.8-35.4); Mean Platelet Volume 8.5 fl (7.4-10.4); Monocytes # 0.3 K/mm3 (0.1-1.0); Monocytes % 3.4 % (1.7-9.3); Neutrophils % 78.9 % (37.0-80.0); Platelet Count 251 K/mm3 (142-424); Red Blood Count 4.29 M/mm3 (4.20-5.40); Red Cell Distribution Width 13.4 % (11.5-17.5); White Blood Count 8.9 K/mm3 (4.8-10.8)
[2023-05-01 10:39] LABS: HIV Screen 4th Generation wRfx Non Reactive (Non Reactive); Rapid Plasma Reagin Ab Titer Non Reactive titer (NonRea<1:1)
[2023-05-01 15:19] LABS: Rubella Antibodies, IgG 2.21 index (Immune >0.99)
[2023-05-03 14:02] LABS: Hepatitis B Surface Antigen Negative
[2023-05-03 14:03] LABS: Hepatitis C Antibody Non Reactive
== END 2023-04-30 23:59 ==
LOC: LAB 10:35
PROVIDERS: PCP Obstetrics & Gynecology; Visit Provider Obstetrics & Gynecology
DX: Z34.91 Encounter for supervision of normal pregnancy, unspecified, first trimester (principal); Z3A.11 11 weeks gestation of pregnancy
CPT/HCPCS: 85025; 86593; 86703; 86762; 86850; 87340; 87380; G0432

== ENCOUNTER 2023-06-27 12:49 | Outpatient (CLI) | payer OTHER, SELFPAY ==
--- NOTE | 2023-06-27 12:50 | US_ITS ---
PROCEDURE: US OB /MATERNAL DETAIL CLINICAL INDICATION: 20 week anatomy scan COMPARISON: No exams were available for comparison FINDINGS: Transabdominal sonographic images of the pelvis were obtained. From her established due date she is 19 weeks 5 days. Single viable intrauterine gestation. Breech position initially and then turned cephalic. Placenta: Anteriorplacenta grade 1. There is an average amount of fluid. The cervix appears satisfactory. Closed and measuring 3.38 cm in length. Complete survey performed and was unremarkable on the submitted images as in PACS. No discrete anomalies identified on survey imaging by technologist. Active fetus. Three-vessel cord with satisfactory umbilical cord insertion. 4- chamber heart noted. [place], aortic arch, LVOT, RVOT, three-vessel view appear normal. Survey of brain & ventricles Unremarkable. Cerebellum, thalamus, choroid plexus, cisterna magna appear normal. Face and neck survey unremarkable. Profile, nasion, lips and nose appeared normal. Diaphragm and chest views unremarkable. Abdomen: Both kidneys noted and unremarkable. Stomach and bladder noted and satisfactory. Spine: Survey of the spine satisfactory with no anomalies identified nor imaged. Cervical, thoracic, lower spine appear normal. Both arms and legs noted. Amniotic Fluid: Adequate. Measurements: Average ultrasound age 19weeks 4days. Estimated due date by ultrasound age 0811/17/2023. Estimated weight 284g BPD = 19weeks 4days HC = 19weeks 5days AC = 19weeks 2days FL = 19weeks 3days Growth Percentile= 23 Heart Rate = 149bpm Cerebellum = 19weeks Humerus = 19weeks 4days HC/AC is 1.24 FL/BPD is 0.67 FL/AC is 0.22 IMPRESSION: 1. Viable fetus in the cephalic presentation with an anterior placenta grade 1. 2. The fluid is within normal limits. 3. Anatomical scan appears normal. 4. biometry is consistent with the dates. Dictated by: Junior Magdaleno MD 06/27/2023 15:52 Junior Magdaleno MD in [place] 06/27/2023 15:52
== END 2023-06-27 23:59 ==
LOC: RAD 12:50
PROVIDERS: PCP Obstetrics & Gynecology; Visit Provider Obstetrics & Gynecology
DX: O26.892 Other specified pregnancy related conditions, second trimester (principal); Z3A.20 20 weeks gestation of pregnancy
CPT/HCPCS: 76811

== ENCOUNTER 2023-08-08 16:54 | Emergency (ER) | payer OTHER, SELFPAY ==
[2023-08-08 16:55] VITALS: BP 131/82; PULSE 78; RESP 18; TEMP 36.6; O2SAT 100; BMI 27.4
--- NOTE | 2023-08-08 17:03 | PC.NURSE ---
FHT auscultated at 145-150 with doppler. Regular rate and rhythm noted.
[2023-08-08 17:37] VITALS: BP 131/82; PULSE 78; RESP 18; TEMP 36.6; O2SAT 100
== END 2023-08-08 17:39 | disposition left against medical advice (07) ==
PROVIDERS: Emergency Provider Emergency Medicine; PCP Internal Medicine Adolescent Medicine
DX: Z53.21 Procedure and treatment not carried out due to patient leaving prior to being seen by health care provider (principal)
CPT/HCPCS: 99211

== ENCOUNTER 2023-08-09 12:29 | Outpatient (CLI) | payer OTHER, SELFPAY ==
[2023-08-09 13:05] LABS: Basophils % 0.2 % (0.1-2.0); Eosinophils # 0.1 K/mm3 (0.0-0.4); Eosinophils % 1.7 % (0.1-12.0); Hematocrit 34.1 % (37.0-47.0); Hemoglobin 11.2 g/dL (12.2-16.2); Lymphocytes # 1.1 K/mm3 (0.7-4.5); Lymphocytes % 13.8 % (10-50); Mean Corpuscular Hemoglobin 30.5 pg (27.0-31.2); Mean Corpuscular Volume 92.6 fl (81-99); Mean Platelet Volume 9.2 fl (7.4-10.4); Monocytes # 0.4 K/mm3 (0.1-1.0); Monocytes % 4.7 % (1.7-9.3); Neutrophils # 6.2 K/mm3 (1.8-7.8); Neutrophils % 79.7 % (37.0-80.0); Platelet Count 260 K/mm3 (142-424); Red Blood Count 3.68 M/mm3 (4.20-5.40); Red Cell Distribution Width 14.1 % (11.5-17.5); White Blood Count 7.7 K/mm3 (4.8-10.8)
[2023-08-09 13:43] LABS: Glucose,Fasting 89 mg/dl (74-100)
[2023-08-09 14:22] LABS: Glucose 1 Hour 121 mg/dL (74-100)
== END 2023-08-09 23:59 | disposition home or self-care (01) ==
LOC: LAB 12:30
PROVIDERS: PCP Internal Medicine Adolescent Medicine; Visit Provider Obstetrics & Gynecology
DX: O26.892 Other specified pregnancy related conditions, second trimester (principal); Z3A.26 26 weeks gestation of pregnancy; R73.09 Other abnormal glucose
CPT/HCPCS: 36415; 82951; 85025

== ENCOUNTER 2023-09-06 09:42 | Outpatient (CLI) | payer OTHER, SELFPAY ==
[2023-09-06 10:00] VITALS: BP 129/72; PULSE 88; RESP 18; TEMP 37.1; O2SAT 99; BMI 28.3
--- NOTE | 2023-09-06 11:23 | EXP.ACUTE.PN ---
Subjective *Date: 09/06/23 *Time: 11:23 Interval history: She had decreased movement over the last 24 hours and as result of that came in for a nonstress test. Medical Exam Head: Present atraumatic Neck: Present normal inspection Respiratory: Present normal respiratory effort; Absent accessory muscle use Assessment and Plan *Assessment and plan (1) Decreased movement during : Status: Acute Qualifiers: Fetus number: single or unspecified fetus Trimester: third trimester Qualified Code(s): O36.8130 - Decreased movements, third trimester, not applicable or unspecified Category: Medical Code(s): O36.8190 - Decreased movements, unspecified trimester, not applicable or unspecified Plan She had decreased movement and as result of that came in for examination. Nonstress test was reactive. She is now feeling the baby move. She will follow up with her regular scheduled appointment.
== END 2023-09-06 11:00 | disposition home or self-care (01) ==
LOC: OBOUT 09:53 → OB 09:54
PROVIDERS: Visit Provider Nurse Practitioner Obstetrics & Gynecology
DX: O36.8130 Decreased fetal movements, third trimester, not applicable or unspecified (principal)
CPT/HCPCS: G0463

== ENCOUNTER 2023-09-27 12:46 | Outpatient (CLI) | payer OTHER, SELFPAY ==
--- NOTE | 2023-09-27 12:47 | US_ITS ---
PROCEDURE: US OB BIOPHYSICAL PROFILE CLINICAL INDICATION: OB US BPP /Growth with SD Ratio and BRIANNA-SGA COMPARISON: US US OB /MATERNAL DETAIL from 06/27/2023 FINDINGS: Transabdominal sonographic images of the uterus were obtained. From her established due date she is 32weeks 6days. The following parameters are obtained: Viable Fetus in the cephalic presentation with and anterior placenta grade 2-3. Average ultrasound age is 33weeks 4days Estimated weight 2,141g Cervix measures 3.9 cm. Measurements: heart Rate = 143bpm BPD = 33weeks 4days, 63 percentile HC = 34weeks 1day, 43 percentile AC = 33weeks 0 days, 51 percent FL = 33weeks 3days, 53 percentile HC/AC is 1.06 FL/BPD is 0.78 FL/AC is 0.22 51 percentile Amniotic fluid index: 9.27cm, MVP 3.36 cm. Qualitative AFV:2 Breathing movements: 2 Gross Body Movements: 2 Tone: 2 Biophysical profile score: 8 Doppler evaluation of the umbilical artery: SD ratio: 2.68-4.0 Resistive index: 0.63 No obvious anomalies evident.Kidneys, stomach, bladder, four-chamber heart, three-vessel cord appear normal. IMPRESSION: 1. Viable fetus in the cephalic presentation with an anterior placenta grade 2-3. 2. The fluid is within normal limits with an amniotic fluid index of 9.27 cm, MVP 3.36 cm. 3. Biophysical profile is 8/8 with good breathing movement and movement seen. 4. SD ratio is normal 2.6-4.0. 5. There has been good interval growth with the fetus currently 51st percentile. Dictated by: Junior Magdaleno MD 09/27/2023 14:18 Junior Magdaleno MD in [place] 09/27/2023 14:18
== END 2023-09-27 23:59 | disposition home or self-care (01) ==
LOC: RAD 12:47
PROVIDERS: PCP Internal Medicine; Visit Provider Obstetrics & Gynecology
DX: O36.5930 Maternal care for other known or suspected poor fetal growth, third trimester, not applicable or unspecified (principal); Z98.891 History of uterine scar from previous surgery; O99.891 Other specified diseases and conditions complicating pregnancy; M54.9 Dorsalgia, unspecified; N96 Recurrent pregnancy loss; O36.8130 Decreased fetal movements, third trimester, not applicable or unspecified; Z3A.32 32 weeks gestation of pregnancy
CPT/HCPCS: 76816; 76819; 76820

== ENCOUNTER 2023-09-30 16:54 | Outpatient (CLI) | payer OTHER, SELFPAY ==
[2023-09-30 17:03] VITALS: BMI 65.0
[2023-09-30 17:07] VITALS: BP 116/72; PULSE 130; RESP 18; TEMP 37.4; O2SAT 98; BMI 29.5
[2023-09-30 17:22] LABS: Microscopic, Urine URINE MICROSCOPIC (MICROSCOPIC)
[2023-09-30 17:26] LABS: Appearance,Urine CLEAR (Clear); Bilirubin,Urine Negative (Negative); Blood, Urine Negative (Negative); Color,Urine YELLOW (Yellow); Glucose,Urine (UA) Negative (Negative); Ketones,Urine Negative (Negative); Leukocyte Esterase,Urine Negative (Negative); Nitrate,Urine Negative (Negative); PH,Urine 6.5 (5.0-8.5); Protein,Urine Negative (Negative); Specific Gravity, Urine 1.015 (1.005-1.030); Urobilinogen,Urine 0.2 EU/dl (0.2)
[2023-09-30 17:35] LABS: Amorphous Sediment,Urine 1+ /lpf; Bacteria,Urine Trace /lpf; WBC,Urine Occasional #/hpf (0-3)
[2023-09-30 17:38] LABS: Barbiturates Screen,Urine Negative ng/ml (<200)
[2023-09-30 17:39] LABS: Benzodiazepines Screen,Urine Negative ng/ml (<200)
[2023-09-30 17:40] LABS: Amphetamine/Metha Screen,Urine Negative ng/ml (<1000); Methadone Screen,Urine Negative ng/ml (<300)
[2023-09-30 17:41] LABS: Cannabinoid Screen,Urine Negative ng/ml (<50); Cocaine Screen,Urine Negative ng/ml (<300)
[2023-09-30 17:42] LABS: Opiate Screen,Urine Negative ng/ml (<300)
[2023-09-30 17:43] LABS: Phencyclidine Screen,Urine Negative ng/ml (<25)
--- NOTE | 2023-09-30 17:49 | ECG_ITS ---
APPROVED REPORT Exam: Resting ECG HR:113 bpm ECG Measurements Heart Rate 113 AXES VA 125 P 34 QRSd 88 QRS 11 QT 320 T 20 QTc 387 Conclusion SINUS TACHYCARDIA LOW QRS VOLTAGE IN PRECORDIAL LEADS [QRS DEFLECTION < 1.0 mV IN CHEST LEADS] POSSIBLE RIGHT VENTRICULAR CONDUCTION DELAY [RSR (QR) IN V1/V2] ABNORMAL RHYTHM ECG UNCONFIRMED REPORT Electronically signed by : Francisco J Armenta MD 10/02/2023 18:56:56
[2023-09-30 18:43] LABS: Chloride 108 mmol/L (98-107)
[2023-09-30 18:44] LABS: Sodium 136 mmol/L (136-145)
[2023-09-30 18:46] LABS: Alanine Aminotransferase 23 U/L (12-78); Aspartate Amino Transferase 31 U/L (14-36); Blood Urea Nitrogen 3 mg/dl (7-17); Creatinine Clearance Estimated 169 mL/min (50-200); Estimated Glomerular Filt Rate 117 ml/min (>60); GFR (African American) 142 ML/MIN (>60)
[2023-09-30 18:47] LABS: Albumin/Globulin Ratio 0.9 (1.1-1.8); Alkaline Phosphatase 83 U/L (38-126); Basophils % 0.2 % (0.1-2.0); Bilirubin,Total 0.3 mg/dl (0.2-1.3); Calcium 8.7 mg/dl (8.4-10.2); Carbon Dioxide 25 mmol/L (22.0-30.0); Eosinophils % 0.8 % (0.1-12.0); Globulin 3.2 g/dL (1.3-3.2); Glucose 97 mg/dl (74-100); Hematocrit 23.9 % (37.0-47.0); Hemoglobin 8.1 g/dL (12.2-16.2); Lymphocytes # 0.7 K/mm3 (0.7-4.5); Lymphocytes % 13.7 % (10-50); Magnesium 1.5 mg/dl (1.6-2.3); Mean Corpuscular HGB Conc 33.8 g/dL (31.8-35.4); Mean Corpuscular Hemoglobin 28.8 pg (27.0-31.2); Mean Corpuscular Volume 85.2 fl (81-99); Mean Platelet Volume 9.3 fl (7.4-10.4); Monocytes # 0.3 K/mm3 (0.1-1.0); Monocytes % 5.9 % (1.7-9.3); Neutrophils # 4.2 K/mm3 (1.8-7.8); Neutrophils % 79.4 % (37.0-80.0); Platelet Count 204 K/mm3 (142-424); Red Blood Count 2.81 M/mm3 (4.20-5.40); Red Cell Distribution Width 15.5 % (11.5-17.5); Total Protein,Serum 6.2 g/dl (6.3-8.2); White Blood Count 5.2 K/mm3 (4.8-10.8)
[2023-09-30] MEDS: LACTATED RINGERS 1000ML 1,000 ML 999 ML IV (19:30)
[2023-09-30] MEDS: MAGNESIUM SULFATE IN WATER 2 GM/50 ML PIGGYBACK IV (19:30)
[2023-09-30] MEDS: POTASSIUM CHLORIDE 20MEQ TAB 40 MEQ PO ×2 (19:31→20:30)
[2023-09-30 19:56] VITALS: BP 115/68; PULSE 102; TEMP 37.4
== END 2023-09-30 20:36 | disposition home or self-care (01) ==
LOC: OBOUT 16:55 → OB 16:57
PROVIDERS: PCP Internal Medicine; Visit Provider Obstetrics & Gynecology
DX: R42 Dizziness and giddiness; R25.2 Cramp and spasm; O99.891 Other specified diseases and conditions complicating pregnancy; Z3A.33 33 weeks gestation of pregnancy
CPT/HCPCS: 36415; 80053; 80307; 81001; 83735; 85025; 87040; 93005; G0463; J3475; J7120

== ENCOUNTER 2023-10-04 10:52 | Outpatient (CLI) | payer OTHER, SELFPAY ==
[2023-10-04 11:49] LABS: Alanine Aminotransferase 22 U/L (12-78); Albumin Level 3.3 g/dl (3.5-5.0); Albumin/Globulin Ratio 1.1 (1.1-1.8); Alkaline Phosphatase 104 U/L (38-126); Anion Gap 8.7 mEq/L (5-15); Aspartate Amino Transferase 29 U/L (14-36); Bilirubin,Total 0.5 mg/dl (0.2-1.3); Blood Urea Nitrogen 4 mg/dl (7-17); Calcium 9.6 mg/dl (8.4-10.2); Carbon Dioxide 25 mmol/L (22.0-30.0); Chloride 106 mmol/L (98-107); Estimated Glomerular Filt Rate 117 ml/min (>60); GFR (African American) 142 ML/MIN (>60); Globulin 3.1 g/dL (1.3-3.2); Glucose 92 mg/dl (74-100); Potassium 3.7 mmoL/L (3.5-5.1); Sodium 136 mmol/L (136-145); Total Protein,Serum 6.4 g/dl (6.3-8.2)
[2023-10-04 12:57] LABS: Vitamin B12 352 pg/mL (239-931)
[2023-10-04 13:04] LABS: Folate > 20.00 ng/mL
[2023-10-04 13:21] LABS: Ferritin 8.23 ng/ml (6.24-137)
[2023-10-04 14:16] LABS: Iron 75 ug/dL (37-170); Total Iron Binding Capacity 445 ug/dL (265-497)
[2023-10-05 08:21] LABS: Transferrin 384 mg/dL (192-364)
== END 2023-10-04 23:59 | disposition home or self-care (01) ==
LOC: LAB 10:53
PROVIDERS: PCP Internal Medicine; Visit Provider Obstetrics & Gynecology
DX: Z34.90 Encounter for supervision of normal pregnancy, unspecified, unspecified trimester (principal)
CPT/HCPCS: 36415; 80053; 82607; 82728; 82746; 83540; 83550; 84466

== ENCOUNTER 2023-10-17 14:01 | Outpatient (CLI) | payer OTHER, SELFPAY ==
[2023-10-17 14:23] LABS: Basophils % 0.3 % (0.1-2.0); Eosinophils # 0.1 K/mm3 (0.0-0.4); Eosinophils % 1.3 % (0.1-12.0); Hematocrit 27.8 % (37.0-47.0); Hemoglobin 9.3 g/dL (12.2-16.2); Lymphocytes # 1.6 K/mm3 (0.7-4.5); Lymphocytes % 17.7 % (10-50); Mean Corpuscular HGB Conc 33.6 g/dL (31.8-35.4); Mean Corpuscular Hemoglobin 28.6 pg (27.0-31.2); Mean Corpuscular Volume 85.2 fl (81-99); Mean Platelet Volume 9.7 fl (7.4-10.4); Monocytes # 0.4 K/mm3 (0.1-1.0); Monocytes % 4.5 % (1.7-9.3); Neutrophils # 6.7 K/mm3 (1.8-7.8); Neutrophils % 76.3 % (37.0-80.0); Platelet Count 244 K/mm3 (142-424); Red Blood Count 3.27 M/mm3 (4.20-5.40); Red Cell Distribution Width 16.2 % (11.5-17.5); White Blood Count 8.8 K/mm3 (4.8-10.8)
== END 2023-10-17 23:59 | disposition home or self-care (01) ==
LOC: LAB 14:02
PROVIDERS: PCP Internal Medicine; Visit Provider Obstetrics & Gynecology
DX: O99.019 Anemia complicating pregnancy, unspecified trimester (principal)
CPT/HCPCS: 36415; 85025

== ENCOUNTER 2023-10-28 10:50 | Outpatient (CLI) | payer OTHER, SELFPAY ==
[2023-10-28] VITALS (12 sets, daily range): BP systolic 109–137; BP diastolic 63–85; PULSE 101; RESP 18; TEMP 36.8; O2SAT 100; BMI 31.2
[2023-10-28 11:18] LABS: Microscopic, Urine URINE MICROSCOPIC (MICROSCOPIC)
[2023-10-28 11:20] LABS: Appearance,Urine CLEAR (Clear); Bilirubin,Urine Negative (Negative); Blood, Urine Negative (Negative); Color,Urine YELLOW (Yellow); Glucose,Urine (UA) Negative (Negative); Ketones,Urine Negative (Negative); Leukocyte Esterase,Urine Negative (Negative); Nitrate,Urine Negative (Negative); PH,Urine 7.5 (5.0-8.5); Protein,Urine Negative (Negative); Specific Gravity, Urine 1.015 (1.005-1.030); Urobilinogen,Urine 0.2 EU/dl (0.2)
[2023-10-28 11:34] LABS: Creatinine,Urine Random 78 mg/dL (Not Estab.)
[2023-10-28 11:36] LABS: Barbiturates Screen,Urine Negative ng/ml (<200); Benzodiazepines Screen,Urine Negative ng/ml (<200)
[2023-10-28 11:37] LABS: Amphetamine/Metha Screen,Urine Negative ng/ml (<1000)
[2023-10-28] MEDS: LACTATED RINGERS 1000ML 1,000 ML 999 ML IV (11:37)
[2023-10-28 11:38] LABS: Bacteria,Urine Trace /lpf; Cannabinoid Screen,Urine Negative ng/ml (<50); Methadone Screen,Urine Negative ng/ml (<300); WBC,Urine Occasional #/hpf (0-3)
[2023-10-28 11:39] LABS: Cocaine Screen,Urine Negative ng/ml (<300)
[2023-10-28 11:40] LABS: Opiate Screen,Urine Negative ng/ml (<300); Phencyclidine Screen,Urine Negative ng/ml (<25)
[2023-10-28 11:46] LABS: Basophils % 0.3 % (0.1-2.0); Eosinophils # 0.1 K/mm3 (0.0-0.4); Eosinophils % 1.3 % (0.1-12.0); Hematocrit 29.2 % (37.0-47.0); Hemoglobin 9.4 g/dL (12.2-16.2); Lymphocytes # 1.4 K/mm3 (0.7-4.5); Lymphocytes % 16.8 % (10-50); Mean Corpuscular HGB Conc 32.2 g/dL (31.8-35.4); Mean Corpuscular Hemoglobin 27.5 pg (27.0-31.2); Mean Corpuscular Volume 85.4 fl (81-99); Mean Platelet Volume 9.4 fl (7.4-10.4); Monocytes # 0.3 K/mm3 (0.1-1.0); Monocytes % 4.1 % (1.7-9.3); Neutrophils # 6.5 K/mm3 (1.8-7.8); Neutrophils % 77.5 % (37.0-80.0); Platelet Count 228 K/mm3 (142-424); Red Blood Count 3.42 M/mm3 (4.20-5.40); Red Cell Distribution Width 17.1 % (11.5-17.5); White Blood Count 8.4 K/mm3 (4.8-10.8)
[2023-10-28 11:56] LABS: Alanine Aminotransferase 30 U/L (12-78); Albumin Level 3.1 g/dl (3.5-5.0); Alkaline Phosphatase 115 U/L (38-126); Anion Gap 8.8 mEq/L (5-15); Aspartate Amino Transferase 37 U/L (14-36); Bilirubin,Total 0.4 mg/dl (0.2-1.3); Blood Urea Nitrogen 4 mg/dl (7-17); Calcium 8.6 mg/dl (8.4-10.2); Carbon Dioxide 24 mmol/L (22.0-30.0); Chloride 108 mmol/L (98-107); Creatinine Clearance Estimated 214 mL/min (50-200); Estimated Glomerular Filt Rate 145 ml/min (>60); GFR (African American) 175 ML/MIN (>60); Globulin 3.2 g/dL (1.3-3.2); Glucose 108 mg/dl (74-100); Sodium 138 mmol/L (136-145); Total Protein,Serum 6.3 g/dl (6.3-8.2); Uric Acid 5.1 mg/dl (2.5-6.2)
[2023-10-28 12:07] LABS: Activated Partial Thrombo Time 24.3 seconds (22.8-30.6); Fibrinogen 412 mg/dL (229.9-363.5); INR 0.88 (0.9-1.1)
[2023-10-28 12:10] LABS: Potassium 2.8 mmoL/L (3.5-5.1)
[2023-10-28] MEDS: BUTALB/ACETAMINOPHEN/CAFFEINE 50MG/325MG/40MG TAB 1 EACH PO (12:36)
[2023-10-28] MEDS: POTASSIUM CHLORIDE 20MEQ TAB 40 MEQ PO (12:36)
[2023-10-28] MEDS: ONDANSETRON 4MG ODT 4 MG SL (12:36)
== END 2023-10-28 14:58 | disposition home or self-care (01) ==
LOC: OBOUT 10:52 → OB 10:53
PROVIDERS: PCP Internal Medicine; Visit Provider Obstetrics & Gynecology
DX: O26.893 Other specified pregnancy related conditions, third trimester (principal); Z3A.37 37 weeks gestation of pregnancy; R51.9 Headache, unspecified; R11.0 Nausea
CPT/HCPCS: 36415; 80053; 80307; 81001; 82570; 84156; 84550; 85025; 85384; 85610; 85730; G0463; J7120; Q0162

== ENCOUNTER 2023-10-29 15:59 | Inpatient (IN) | payer OTHER, SELFPAY ==
[2023-10-29 14:23] VITALS: BMI 31.2
[2023-10-29 14:27] VITALS: BP 130/77; PULSE 81; RESP 19; TEMP 36.6; O2SAT 100; BMI 31.2
[2023-10-29 14:38] LABS: Microscopic, Urine URINE MICROSCOPIC (MICROSCOPIC)
[2023-10-29 14:45] LABS: Appearance,Urine CLEAR (Clear); Bilirubin,Urine Negative (Negative); Blood, Urine Negative (Negative); Color,Urine YELLOW (Yellow); Glucose,Urine (UA) Negative (Negative); Ketones,Urine Negative (Negative); Leukocyte Esterase,Urine Negative (Negative); Nitrate,Urine Negative (Negative); PH,Urine 6.5 (5.0-8.5); Protein,Urine Negative (Negative); Specific Gravity, Urine 1.015 (1.005-1.030); Urobilinogen,Urine 0.2 EU/dl (0.2)
[2023-10-29 14:57] LABS: Barbiturates Screen,Urine Positive ng/ml (<200); Benzodiazepines Screen,Urine Negative ng/ml (<200)
[2023-10-29 14:58] LABS: Amphetamine/Metha Screen,Urine Negative ng/ml (<1000)
[2023-10-29 14:59] LABS: Cannabinoid Screen,Urine Negative ng/ml (<50); Cocaine Screen,Urine Negative ng/ml (<300)
[2023-10-29 15:00] LABS: Methadone Screen,Urine Negative ng/ml (<300)
[2023-10-29 15:01] LABS: Opiate Screen,Urine Negative ng/ml (<300); Phencyclidine Screen,Urine Negative ng/ml (<25)
[2023-10-29 15:06] LABS: Bacteria,Urine Trace /lpf
[2023-10-29 15:43] LABS: Basophils % 0.4 % (0.1-2.0); Eosinophils # 0.1 K/mm3 (0.0-0.4); Eosinophils % 1.5 % (0.1-12.0); Hematocrit 29.3 % (37.0-47.0); Hemoglobin 9.4 g/dL (12.2-16.2); Lymphocytes # 1.6 K/mm3 (0.7-4.5); Lymphocytes % 17.9 % (10-50); Mean Corpuscular Hemoglobin 27.7 pg (27.0-31.2); Mean Corpuscular Volume 86.7 fl (81-99); Mean Platelet Volume 9.6 fl (7.4-10.4); Monocytes # 0.4 K/mm3 (0.1-1.0); Monocytes % 4.5 % (1.7-9.3); Neutrophils # 6.6 K/mm3 (1.8-7.8); Neutrophils % 75.8 % (37.0-80.0); Platelet Count 218 K/mm3 (142-424); Red Blood Count 3.38 M/mm3 (4.20-5.40); Red Cell Distribution Width 17.3 % (11.5-17.5); White Blood Count 8.7 K/mm3 (4.8-10.8)
[2023-10-29 15:52] LABS: Albumin Level 3.1 g/dl (3.5-5.0); Chloride 110 mmol/L (98-107); Potassium 3.6 mmoL/L (3.5-5.1); Sodium 135 mmol/L (136-145)
[2023-10-29 15:54] LABS: Blood Urea Nitrogen 2 mg/dl (7-17); Creatinine Clearance Estimated 179 mL/min (50-200); Estimated Glomerular Filt Rate 117 ml/min (>60); GFR (African American) 142 ML/MIN (>60)
[2023-10-29 15:55] LABS: Alanine Aminotransferase 23 U/L (12-78); Alkaline Phosphatase 129 U/L (38-126); Anion Gap 4.6 mEq/L (5-15); Aspartate Amino Transferase 31 U/L (14-36); Bilirubin,Total 0.4 mg/dl (0.2-1.3); Calcium 8.2 mg/dl (8.4-10.2); Carbon Dioxide 24 mmol/L (22.0-30.0); Globulin 3.1 g/dL (1.3-3.2); Glucose 72 mg/dl (74-100); Total Protein,Serum 6.2 g/dl (6.3-8.2)
[2023-10-29 16:00] LABS: Creatinine,Urine Random 44 mg/dL (Not Estab.)
[2023-10-29 16:10] LABS: Uric Acid 4.4 mg/dl (2.5-6.2)
--- NOTE | 2023-10-29 16:27 | P.HP_ITS ---
OB - H&P: HPI Antepartum History of Present Illness Chief complaint: High blood pressure, headaches, swelling History of present illness: Mrs Talyor Self is a 28 yo at 37w3d who presents to [facility] L&D with complaint of increased BP at home with continued headaches and swelling in hands and feet. She has had headaches, swelling, heartburn, nausea, pelvic pressure, back pain for several weeks. She states when her headaches get really bad she has floaters in her vision. She took Tylenol this morning with a little relief. Today BP between 1130 and 1400 was 132/90, 144/93, 141/91, 130/94. Baby is moving but activity feels decreased. No leakage of fluid or vaginal bleeding. No contractions. She has had good care. History of x 2. complicated by anemia and anxiety. She is complete with childbearing and desires permanent sterilization. History of Present Criteria for establishing EDC:: LMP confirmed by 1st trimester US care: good care Ultrasounds: normal mid trimester US Obstetrical complications: preeclampsia and previous Labs Blood type: O (+) positive Rubella: immune RPR/VDRL: nonreactive HBsAG: negative PFSH PFSH Disclaimer: The information contained in this section may have been updated after the patient was seen, as this information can be updated by other users. Medical History (Updated 10/29/23 @ 16:42 by Ericka Clinton DO) Request for sterilization Preeclampsia Anemia affecting Hypokalemia Back pain affecting Heartburn during Spotting in early Nausea and vomiting in Anxiety Anxiety disorder affecting , antepartum delivery delivered Surgical History Hx of dilation and curettage Previous section Family History Other Alcoholism Asthma Coronary artery disease Hypertension Substance abuse Social History Smoking Status: Never smoker alcohol intake: never substance use type: denies use current occupational status: unemployed Travel in the last 8 weeks: None household members: spouse, family and children housing: house current occupational exposures/hazards: No caffeine: Yes Review of Systems Review of Systems Review of systems:: pertinent systems reviewed and negative unless documented below Constitutional Constitutional: Reports headache(s) Eyes Eyes: Reports floaters (with severe headaches) ENT Ears, Nose, Mouth, and Throat: Reports headache(s) *Gastrointestinal Gastrointestinal: Reports dyspepsia and Reports nausea *Genitourinary Genitourinary: Reports other (pelvic pressure) *Musculoskeletal Musculoskeletal: Reports back pain Comments: + swelling of hands and bilateral lower extremities *Neurologic Neurologic: Reports headache(s) Meds Home Medications and Allergies Home Medications ?Medication ?Instructions ?Recorded ?Confirmed ?Type pantoprazole 40 mg tablet,delayed 40 mg PO DAILY #30 tabs 10/17/23 10/26/23 Rx release (Protonix) hydroxyzine pamoate 25 mg capsule 25 mg PO Q8H PRN anxiety #20 caps 10/28/23 Rx (Vistaril) potassium chloride 20 mEq 20 meq PO BID 3 days #7 tabs 10/28/23 Rx tablet,extended release New Prescriptions to Start Prescriptions: Allergies Allergy/AdvReac Type Severity Reaction Status Date / Time Iodinated Contrast Media Allergy Mild Verified 10/26/23 11:25 Penicillins [PENICILLINS] Allergy Unknown Verified 10/26/23 11:25 OB - H&P: Exam Physical Exam Vital signs: Temp Pulse Resp BP Pulse Ox O2 Del Method 97.8 F 81 19 130/77 100 Room Air 10/29/23 14:27 10/29/23 14:27 10/29/23 14:27 10/29/23 14:27 10/29/23 14:27 10/29/23 14:27 Constitutional no acute distress and cooperative Routine HEENT Exam Head: Present normocephalic and atraumatic Eye: Absent conjunctivae pink ENT: Present mucous membranes moist Routine Respiratory Exam Present CTA bilaterally and normal respiratory effort Routine Cardiovascular Exam Present RRR Routine Abdominal Exam Present soft (Gravid); Absent tenderness Routine Rectal Exam Patient deferred: visual exam Routine Exam External: Present normal urethra appearance; Absent erythema, swelling, tenderness, lesions or lacerations Routine Extremities Exam Present edema and full ROM; Absent calf tenderness Comments: pedal edema +3 pitting, +2 bilateral lower extremity edema, bilateral edema of hands Routine Neurological Exam Present alert, moving all extremities and normal speech Routine Psychiatric Exam Present normal affect and cooperative Detailed Labor and Delivery Exam Membranes: intact Baseline heart rate: 120 monitor accelerations: Present termite exterminator helper variability: Moderate (11-25) Contraction frequency (min): 3 OB - Results Labs Labs: Short CBC 10/29/23 Range/Units 15:28 WBC 8.7 (4.8-10.8) K/mm3 Hgb 9.4 L (12.2-16.2) g/dL Hct 29.3 L (37.0-47.0) % Plt Count 218 (142-424) K/mm3 BMP 10/29/23 15:28 Sodium 135 L Potassium 3.6 D Chloride 110 H Carbon Dioxide 24 BUN 2 L D Creatinine 0.60 Glucose 72 L Calcium 8.2 L Liver Function 10/29/23 Range/Units 15:28 Total Bilirubin 0.4 (0.2-1.3) mg/dl AST 31 (14-36) U/L ALT 23 (12-78) U/L Alkaline Phosphatase 129 H (38-126) U/L Albumin 3.1 L (3.5-5.0) g/dl Urine 10/29/23 Range/Units 14:27 Urine Color Yellow (Yellow) Urine Appearance Clear (Clear) Urine pH 6.5 (5.0-8.5) Ur Specific [place] 1.015 (1.005-1.030) Urine Protein Negative (Negative) Urine Glucose (UA) Negative (Negative) OB - A/P Antepartum (1) Preeclampsia: Status: Acute (2) Previous section: Problem details: x2 Status: Acute (3) Anemia affecting : Status: Acute (4) Anxiety disorder affecting , antepartum: Status: Acute (5) Back pain affecting : Status: Acute (6) Heartburn during : Status: Acute (7) Request for sterilization: Status: Acute Additional Plan Planning to breastfeed?: Yes Additional Information:: BP on L&D was mixed normotensive and mild range: 148/88, 149/75 and 156/87. Headaches daily with floaters at times and swelling. Admit to L&D for preeclampsia and repeat with bilateral salpingectomy Discussed surgery in detail. Discussed risks, benefits, alternatives, expectations and possible complications of surgery. Risks include but are not limited to bleeding; infection; damage to adjacent structures (bowel, bladder, nerves, blood vessels, etc) (possibly requiring further intervention and/or longer hospital stay); VTE; risks with anesthesia; and risk of . All questions addressed and answered. Patient voiced understanding of risks and possible complications. Patient desires to proceed with surgery. Consent form signed. Proceed with RLTCS and bilateral salpingectomy
[2023-10-29] MEDS: GENTAMICIN SULFATE 400 MG in 0.9 % SODIUM CHLORIDE 100 ML 100 MG IV (18:50)
[2023-10-29] MEDS: CLINDAMYCIN PHOSPHATE/D5W 900 MG/50 ML PIGGYBACK 50 MG IV (18:50)
[2023-10-29 18:57] LABS: Activated Partial Thrombo Time 24.8 seconds (22.8-30.6); Fibrinogen 425 mg/dL (229.9-363.5); INR 0.86 (0.9-1.1); Prothrombin Time 9.8 seconds (10.1-12.5)
--- NOTE | 2023-10-29 20:04 | P.OP_ITS ---
Date of procedure: 10/29/23 Pre-op Diagnosis:: 1. IUP at 37w3d 2. Preeclampsia 3. History of x 2 4. Anxiety in 5. Anemia affecting 6. Complete family status, desires permanent sterilization Post-op Diagnosis:: 1. IUP at 37w3d 2. Preeclampsia 3. History of x 2 4. Anxiety in 5. Anemia affecting 6. Complete family status, desires permanent sterilization Procedure performed:: Repeat Low Transverse Section, bilateral salpingectomy Surgeon:: Ericka Clinton DO Wooden Frame Builder(s):: Diogo Díaz MD HATCHERY EMPLOYEE:: Braeden Hernandez Anesthesia: spinal Estimated blood loss (mL): 400 Clinical Note:: Mrs Taylor Self is a 28 yo at 37w3d admitted to [facility] L&D for new onset preeclampsia. She has had headaches, swelling, heartburn, nausea, pelvic pressure and back pain for several weeks. She states when her headaches get really bad she has floaters in her vision. She took Tylenol this morning with a little relief. Today BP between 1130 and 1400 was 132/90, 144/93, 141/91, 130/94. Baby is moving but activity feels decreased. No leakage of fluid or vaginal bleeding. No contractions. She has had good care. History of c- section x 2. complicated by anemia and anxiety. She is complete with childbearing and desires permanent sterilization. PIH labs within normal limits but urine protein/creatinine ratio elevated at 0.431. BP on L&D varied between normotensive and mild range: 148/88, 149/75 and 156/87. Headaches daily with floaters at times and swelling. Operative findings:: 1. Live male baby, David (weight pending at time of dictation), with Apgars 8 (1 min), 9 (5 min) 2. Grossly normal appearing uterus, bilateral fallopian tubes and ovaries Operative note:: The risks, benefits and alternatives of the procedure were reviewed with the patient. Informed consent was obtained. Patient was taken to the operating room where spinal anesthesia was placed. The patient received Clindamycin 900 mg and Gentamicin 5mg/kg preoperatively. Patient was placed in dorsal supine position with a leftward tilt. SCDs in place. Nixon catheter was inserted and draining clear urine prior to the start of the procedure. heart tones were obtained. Patient was then prepped and draped in normal sterile fashion. Allis clamp test was performed to ensure adequate anesthesia. A Pfannenstiel skin incision was made 2 cm above pubic symphysis, slightly above prior Pfannenstiel scar. This was carried through to underlying layer of fascia. Fascia was incised in midline, extended laterally with Cha scissors. Superior aspect of fascial incision was grasped with two Malorie clamps, elevated up, and rectus muscle dissected off bluntly and sharply with Cha scissors. Inferior aspect of fascial incision was grasped with two Malorie clamps, elevated up, and rectus muscle dissected off bluntly and sharply with Cha scissors.The retcus muscle was then in the midline and the peritoneum was entered bluntly with a digit. Peritoneal incision was then extended superiorly and inferiorly with good visualization of the bladder. Feng retractor was inserted. The lower uterine segment was incised in a transverse fashion. Clear amniotic fluid was noted. Head was delivered without difficulty. Remainder of body was delivered without difficulty. Mouth and nares were bulb suctioned. Spontaneous cry was noted. Delayed cord clamping was performed for 60 seconds. The umbilical cord was clamped and cut. The infant was handed to awaiting pediatric staff in stable condition. Dr. Ariza was present. Apgars were 8(1 min), 9(5 min). Cord blood was obtained. Gentle traction on the umbilical cord and uterine fundal massage delivered the placenta. Placenta was intact. Placenta will be sent to pathology for review. Uterus was cleared of all clots and debris with a moist laparotomy sponge. Corners of the uterine incision were grasped with Allis clamps. The uterine incision was reapproximated with # 1 Vicryl suture in a running, locked stitch. Second layer of the same stitch was used to imbricate the incision. Hemostasis was noted. Posterior cul-de-sac was cleaned with moist laparotomy sponge. Gutters cleared of all clots and debris with a moist laparotomy sponge. Attention was then turned to the left fallopian tube, which was grasped with a Reggie clamp. Enseal device was used to clamp, ligate and transect the right mesosalpinx and fallopian tube at uterine cornua,. Same procedure was carried out on the contralateral side Reinspection of the lower uterine segment demonstrated excellent hemostasis. At this point all instruments and sponges were removed from the pelvis.? The peritoneum was grasped with Blanca clamps x 3. The peritoneum was reapproximated with 0 Vicryl suture in a running stitch. The corners of the fascia were grasped with Malorie clamps, and the fascia was reapproximated with two # 1 Vicryl suture overlapped to the right of midline. Subcutaneous tissue was irrigated with clear return of fluids. The subcutaneous tissue was reapproximated with 3-0 Vicryl. The skin was reapproximated with Insorb jimena. Steri strips and Telfa was placed over closed Pfannenstiel skin incision. At the end of the procedure, the uterus was firm with minimal vaginal bleeding. Patient tolerated the procedure well. Instrument, sponges and needle counts were correct x 2. Mom and baby were transported to recovery room in stable condition. Condition: stable Disposition: floor Specimens:: 1. Placenta and umbilical cord 2. Cord blood Complications:: None
[2023-10-29 20:05] VITALS: BP 129/71; PULSE 74; RESP 16; TEMP 37.1; O2SAT 100
[2023-10-29 20:15] VITALS: BP 139/74; PULSE 71; RESP 16; TEMP 37.1; O2SAT 100
--- NOTE | 2023-10-29 20:17 | P.PNANES_ITS ---
[facility] Disclaimer: The information contained in this section may have been updated after the patient was seen, as this information can be updated by other users. Medical History (Updated 10/29/23 @ 16:42 by Ericka Clinton DO) Request for sterilization Preeclampsia Anemia affecting Hypokalemia Back pain affecting Heartburn during Spotting in early Nausea and vomiting in Anxiety Anxiety disorder affecting , antepartum delivery delivered Surgical History Hx of dilation and curettage Previous section Family History Other Alcoholism Asthma Coronary artery disease Hypertension Substance abuse Social History Smoking Status: Never smoker alcohol intake: never substance use type: denies use current occupational status: unemployed Travel in the last 8 weeks: None household members: spouse, family and children housing: house current occupational exposures/hazards: No caffeine: Yes [facility] Anesthesia Checklist Patient Identification Patient Identification: Arm Band Structural Data Admitted From: Inpatient Planned Operative Procedure/s: Repeat C/S, Bilateral Salpingectomy Consent for Planned Operative Procedure(s) Verified: Yes Verified Documents: Surgical Consent and History and Physical NPO Status Verified Time NPO: 08:00 Additional verifications Anesthesia Reactions: No Hx Blood Transfusions: No Blood Transfusion Reaction: No Airway Assessment Mallampati Score:: Class II C-Spine Mobility Assessed: Yes TMJ Mobility Assessed: Yes Dentition: Good Dentition Neurological Assessment Level of Consciousness: Awake, Alert and Appropriate Anesthesia Plan Anesthesia Risk discussed: Yes Anesthesia Plan: Verified ASA Class: II Anesthesia Type: Spinal (With Bilateral TAP Block)
--- NOTE | 2023-10-29 20:18 | EXP.ANES.I ---
[facility] Anesthesia Record Part I Anesthesia Record I Intake, IV Amount: 2,000 Hydration: Adequate Estimated blood loss (mL): 400 Urine output (mL): 600 Blood Products used (#): none Blood Pressure: 129/71 SaO2: 97 Pulse Rate: 76 Airway Patency: Patent Respiratory Rate: 16 Temperature: 98.8 F Patient is:: Awake and Stable Stable to PACU at:: 20:05
[2023-10-29 20:19] VITALS: BP 129/71; PULSE 76; RESP 16; TEMP 37.1; O2SAT 97
[2023-10-29 20:25] VITALS: BP 135/79; PULSE 69; RESP 16; TEMP 37.1; O2SAT 100
[2023-10-29 20:35] VITALS: BP 120/79; PULSE 75; RESP 16; TEMP 37.1; O2SAT 100
[2023-10-29 20:39] LABS: Microscopic,Cath URINE MICROSCOPIC (MICROSCOPIC)
[2023-10-29 20:45] LABS: Appearance,Urine/Cath CLEAR (Clear); Bilirubin,Cath Negative (Negative); Blood, Urine/Cath Negative (Negative); Color,Urine/Cath YELLOW (Yellow); Glucose,Urine/Cath (UA) Negative (Negative); Ketones,Urine/Cath 2+ (Negative); Leukocyte Esterase,Cath Negative (Negative); Nitrate,Cath Negative (Negative); PH,Urine/Cath 7.5 (5.0-8.5); Protein,Urine/Cath Negative (Negative); Urobilinogen,Cath 0.2 EU/dl (0.2)
[2023-10-29 20:58] LABS: Squamous Epithelial Ur./Cath Occasional #/hpf (0-5)
[2023-10-29] MEDS: HYDROMORPHONE 2MG/ML SYRINGE 2 MG IV (23:17)
[2023-10-30] VITALS: BP 131/78; PULSE 67; RESP 20; TEMP 36.7; O2SAT 100
[2023-10-30] MEDS: ONDANSETRON 4MG/2ML VIAL 4 MG IV (00:12)
[2023-10-30 04:00] VITALS: BP 122/78; PULSE 67; RESP 18; TEMP 36.7; O2SAT 98
[2023-10-30] MEDS: CLINDAMYCIN PHOSPHATE/D5W 900 MG/50 ML PIGGYBACK 100 MG IV (04:49)
[2023-10-30] MEDS: ACETAMINOPHEN 500MG TAB 1000 MG PO ×2 (04:49→09:28)
[2023-10-30] MEDS: KETOROLAC 30MG/ML VIAL 30 MG IV ×2 (06:00→09:28)
[2023-10-30 09:05] LABS: Basophils % 0.2 % (0.1-2.0); Eosinophils # 0.1 K/mm3 (0.0-0.4); Eosinophils % 1.1 % (0.1-12.0); Hematocrit 28.6 % (37.0-47.0); Hemoglobin 9.1 g/dL (12.2-16.2); Lymphocytes # 1.3 K/mm3 (0.7-4.5); Lymphocytes % 11.9 % (10-50); Mean Corpuscular HGB Conc 31.9 g/dL (31.8-35.4); Mean Corpuscular Hemoglobin 27.9 pg (27.0-31.2); Mean Corpuscular Volume 87.4 fl (81-99); Mean Platelet Volume 10.5 fl (7.4-10.4); Monocytes # 0.4 K/mm3 (0.1-1.0); Monocytes % 4.1 % (1.7-9.3); Neutrophils # 8.9 K/mm3 (1.8-7.8); Neutrophils % 82.7 % (37.0-80.0); Platelet Count 203 K/mm3 (142-424); Red Blood Count 3.27 M/mm3 (4.20-5.40); Red Cell Distribution Width 17.6 % (11.5-17.5); White Blood Count 10.7 K/mm3 (4.8-10.8)
--- NOTE | 2023-10-30 10:26 | P.DS_ITS ---
General Admission date:: 10/29/23 Discharge date: 10/30/23 HPI HPI HPI: POD # 1 s/p RTLCS with BS Doing okay. Pain controlled with PO medication. Pumping and formual feeding. Lochia is appropriate. Voiding without difficulty and passing flatus. Tolerating regular diet. Denies fever/chills, chest pain and shortness of breath. No headaches, vision changes, lightheadedness/dizziness. Admits to lower extremity swelling. No calf tenderness. Ambulating well ad eleno. Hospital Course Hospital Course Hospital Course: Mrs Taylor Self is a 28 yo at 37w3d admitted to [facility] L&D for new onset preeclampsia. She has had headaches, swelling, heartburn, nausea, pelvic pressure and back pain for several weeks. She states when her headaches get really bad she has floaters in her vision. She took Tylenol this morning with a little relief. Today BP between 1130 and 1400 was 132/90, 144/93, 141/91, 130/94. Baby is moving but activity feels decreased. No leakage of fluid or vaginal bleeding. No contractions. She has had good care. History of c- section x 2. complicated by anemia and anxiety. She is complete with childbearing and desires permanent sterilization. PIH labs within normal limits but urine protein/creatinine ratio elevated at 0.431. BP on L&D varied between normotensive and mild range: 148/88, 149/75 and 156/87. Headaches daily with floaters at times and swelling. She underwent repeat low transverse section with bilateral salpingectomy on 10/29/23. She delivered a live male baby, David, 7lb 7 oz. AGPARs 8 (1 min) 9 (5 min). EBL 400 mL. She did well postoperatively. Pain controlled. Pumping and formula feeding. Lochia appropriate. Voiding without difficulty and passing flatus. Tolerating regular diet. Denies fever/chills, chest pain and shortness of breath. No headaches, dizziness/lightheadedness or vision changes. Vital signs stable, afebrile. Heart regular rate and rhythm. Lungs clear to auscultation. Abdomen soft, appropriate tenderness to palpation postoperatively. She had +3 bilateral lower extremity edema. No calf tenderness to palpation. Ambulating well ad eleno. Baby was getting transferred to for TTN/respiratory distress. She was discharged to home on POD # 1 with instructions to follow-up in the office in 2 weeks or sooner if needed. Exam Data for Last 24 hours Vital signs and Labs for Last 24 Hours: Temp Pulse Resp BP Pulse Ox O2 Del Method 98.0 F 67 18 122/78 98 Room Air 10/30/23 04:00 10/30/23 04:00 10/30/23 04:00 10/30/23 04:00 10/30/23 04:00 10/30/23 04:00 Laboratory Results - last 24 hr 10/29/23 14:27: Urine Color Yellow, Urine Appearance Clear, Urine pH 6.5, Ur Specific [place] 1.015, Urine Protein Negative, Urine Glucose (UA) Negative, Ur ine Ketones Negative, Urine Blood Negative, Urine Nitrate Negative, Urine Bilirubin Negative, Urine Urobilinogen 0.2, Ur Leukocyte Esterase Negative, Urine RBC None, Urine WBC None, Ur Squamous Epith Cells 5-10, Urine Bacteria Trace, Urine Creatinine 44, Urine Total Protein 19.0 H, Urine Opiates Screen Negative, Urine Methadone Screen Negative, Ur Barbituates Screen Positive H, Ur Phencyclidine Scrn Negative, Ur Amphetamines Screen Negative, U Benzodiazepines Scrn Negative, Urine Cocaine Screen Negative, U Marijuana (THC) Screen Negative 10/29/23 15:28: WBC 8.7, RBC 3.38 L, Hgb 9.4 L, Hct 29.3 L, MCV 86.7, MCH 27.7, MCHC 32.0, RDW 17.3, Plt Count 218, MPV 9.6, Neut % (Auto) 75.8, Lymph % (Auto) 17.9, [place] % (Auto) 4.5, Eos % (Auto) 1.5, Baso % (Auto) 0.4, Neut # (Auto) 6.6, Lymph # (Auto) 1.6, [place] # (Auto) 0.4, Eos # (Auto) 0.1, Baso # (Auto) 0.0, PT 9.8 L, INR 0.86 L, APTT 24.8, Fibrinogen 425 H, Sodium 135 L, Potassium 3.6 D, Chloride 110 H, Carbon Dioxide 24, Anion Gap 4.6 L, BUN 2 L D, Creatinine 0.60, Estimated Creat Clear 179, Estimated GFR 117, Est GFR ( Amer) 142, Glucose 72 L, Uric Acid 4.4, Calcium 8.2 L, Total Bilirubin 0.4, AST 31, ALT 23, Alkaline Phosphatase 129 H, Total Protein 6.2 L, Albumin 3.1 L, Globulin 3.1, Albumin/Globulin Ratio 1.0 L 10/29/23 16:00: Blood Type O Positive, Antibody Screen Negative 10/29/23 : Urine Color Yellow, Urine Appearance Clear, Urine pH 7.5, Ur Specific [place] 1.010, Urine Protein Negative, Urine Glucose (UA) Negative, Urine Ketones 2+, Urine Blood Negative, Urine Nitrate Negative, Urine Bilirubin Negative, Urine Urobilinogen 0.2, Ur Leukocyte Esterase Negative, Urine RBC None, Urine WBC None, Ur Squamous Epith Cells Occasional, Urine Bacteria None 10/30/23 08:35: WBC 10.7, RBC 3.27 L, Hgb 9.1 L, Hct 28.6 L, MCV 87.4, MCH 27.9, MCHC 31.9, RDW 17.6 H, Plt Count 203, MPV 10.5 H, Neut % (Auto) 82.7 H, Lymph % (Auto) 11.9, [place] % (Auto) 4.1, Eos % (Auto) 1.1, Baso % (Auto) 0.2, Neut # (Auto) 8.9 H, Lymph # (Auto) 1.3, [place] # (Auto) 0.4, Eos # (Auto) 0.1, Baso # (Auto) 0.0 I & O for Last 24 hours: Intake & Output 10/27/23 10/28/23 10/29/23 10/30/23 23:59 23:59 23:59 23:59 Intake Total 1999 / 1999 Output Total 1400 / 1400 2200 / 2200 Balance 600 / 600 -2200 / -2200 Weight 182 lb Constitutional Constitutional: no acute distress and cooperative *Routine HEENT Exam Head: Present normocephalic and atraumatic Eye: Absent conjunctivae pink ENT: Present mucous membranes moist *Routine Neck Exam Neck: Present full ROM *Routine Respiratory Exam Respiratory: Present CTA bilaterally and normal respiratory effort *Routine Cardiovascular Exam Cardiovascular: Present RRR *Routine Abdominal Exam Abdominal: Present soft, normoactive bowel sounds and tenderness (appropriate mild tenderness to palpation); Absent distended Comments: Uterine fundus firm and below umbilicus, Pfannenstiel incision clean/dry/intact with steri strips in place *Routine Rectal Exam Patient deferred: visual exam *Routine Exam Patient deferred: external exam *Routine Extremities Exam Extremities: Present edema (+3 bilateral lower extremity edema) and full ROM; Absent calf tenderness *Routine Neurological Exam Neurological: Present alert, moving all extremities and normal speech Routine Psychiatric Exam Psychiatric: Present normal affect and cooperative Results Data Completed and Pending Labs on day of discharge: Labs from last 24 hours 10/30/23 10/29/23 10/29/23 08:35 Unknown 16:00 WBC 10.7 RBC 3.27 L Hgb 9.1 L Hct 28.6 L MCV 87.4 MCH 27.9 MCHC 31.9 RDW 17.6 H Plt Count 203 MPV 10.5 H Neut % (Auto) 82.7 H Lymph % (Auto) 11.9 [place] % (Auto) 4.1 Eos % (Auto) 1.1 Baso % (Auto) 0.2 Neut # (Auto) 8.9 H Lymph # (Auto) 1.3 [place] # (Auto) 0.4 Eos # (Auto) 0.1 Baso # (Auto) 0.0 PT INR APTT Fibrinogen Sodium Potassium Chloride Carbon Dioxide Anion Gap BUN Creatinine Estimated Creat Clear Estimated GFR Est GFR ( Amer) Glucose Uric Acid Calcium Total Bilirubin AST ALT Alkaline Phosphatase Total Protein Albumin Globulin Albumin/Globulin Ratio Urine Color Yellow Urine Appearance Clear Urine pH 7.5 Ur Specific [place] 1.010 Urine Protein Negative Urine Glucose (UA) Negative Urine Ketones 2+ Urine Blood Negative Urine Nitrate Negative Urine Bilirubin Negative Urine Urobilinogen 0.2 Ur Leukocyte Esterase Negative Urine RBC None Urine WBC None Ur Squamous Epith Cells Occasional Urine Bacteria None Urine Creatinine Urine Total Protein Urine Opiates Screen Urine Methadone Screen Ur Barbituates Screen Ur Phencyclidine Scrn Ur Amphetamines Screen U Benzodiazepines Scrn Urine Cocaine Screen U Marijuana (THC) Screen Blood Type O Positive Antibody Screen Negative 10/29/23 10/29/23 15:28 14:27 WBC 8.7 RBC 3.38 L Hgb 9.4 L Hct 29.3 L MCV 86.7 MCH 27.7 MCHC 32.0 RDW 17.3 Plt Count 218 MPV 9.6 Neut % (Auto) 75.8 Lymph % (Auto) 17.9 [place] % (Auto) 4.5 Eos % (Auto) 1.5 Baso % (Auto) 0.4 Neut # (Auto) 6.6 Lymph # (Auto) 1.6 [place] # (Auto) 0.4 Eos # (Auto) 0.1 Baso # (Auto) 0.0 PT 9.8 L INR 0.86 L APTT 24.8 Fibrinogen 425 H Sodium 135 L Potassium 3.6 D Chloride 110 H Carbon Dioxide 24 Anion Gap 4.6 L BUN 2 L D Creatinine 0.60 Estimated Creat Clear 179 Estimated GFR 117 Est GFR ( Amer) 142 Glucose 72 L Uric Acid 4.4 Calcium 8.2 L Total Bilirubin 0.4 AST 31 ALT 23 Alkaline Phosphatase 129 H Total Protein 6.2 L Albumin 3.1 L Globulin 3.1 Albumin/Globulin Ratio 1.0 L Urine Color Yellow Urine Appearance Clear Urine pH 6.5 Ur Specific [place] 1.015 Urine Protein Negative Urine Glucose (UA) Negative Urine Ketones Negative Urine Blood Negative Urine Nitrate Negative Urine Bilirubin Negative Urine Urobilinogen 0.2 Ur Leukocyte Esterase Negative Urine RBC None Urine WBC None Ur Squamous Epith Cells 5-10 Urine Bacteria Trace Urine Creatinine 44 Urine Total Protein 19.0 H Urine Opiates Screen Negative Urine Methadone Screen Negative Ur Barbituates Screen Positive H Ur Phencyclidine Scrn Negative Ur Amphetamines Screen Negative U Benzodiazepines Scrn Negative Urine Cocaine Screen Negative U Marijuana (THC) Screen Negative Blood Type Antibody Screen DS: Diagnosis Discharge Diagnosis (1) S/P repeat low transverse : Status: Acute Code(s): Z98.891 - History of uterine scar from previous surgery Problem details: with bilateral salpingectomy (2) Preeclampsia: Status: Acute Code(s): O14.90 - Unspecified pre-eclampsia, unspecified trimester (3) Previous section: Status: Acute Code(s): Z98.891 - History of uterine scar from previous surgery Problem details: x2 (4) Anemia affecting : Status: Acute Code(s): O99.019 - Anemia complicating , unspecified trimester Qualifiers: Trimester: third trimester Qualified Code(s): O99.013 - Anemia complicating , third trimester (5) Anxiety disorder affecting , antepartum: Status: Acute Code(s): O99.340 - Other mental disorders complicating , unspecified trimester; F41.9 - Anxiety disorder, unspecified (6) Back pain affecting : Status: Acute Code(s): O99.891 - Other specified diseases and conditions complicating ; M54.9 - Dorsalgia, unspecified (7) Heartburn during : Status: Acute Code(s): O26.899 - Other specified related conditions, unspecified trimester; R12 - Heartburn Qualifiers: Trimester: second trimester Qualified Code(s): O26.892 - Other specified related conditions, second trimester; R12 - Heartburn (8) Request for sterilization: Status: Acute Code(s): Z30.2 - Encounter for sterilization Meds Home Medications and Allergies Home Medications ?Medication ?Instructions ?Recorded ?Confirmed ?Type pantoprazole 40 mg tablet,delayed 40 mg PO DAILY #30 tabs 10/17/23 10/26/23 Rx release (Protonix) potassium chloride 20 mEq 20 meq PO BID 3 days #7 tabs 10/28/23 Rx tablet,extended release ibuprofen 800 mg tablet 800 mg PO Q8H PRN pain #20 tabs 10/30/23 Rx oxycodone 5 mg tablet 5 mg PO Q4HP PRN Moderate Pain 10/30/23 Rx (4-6) #20 tabs New Prescriptions to Start Prescriptions: ibuprofen Ericka Clinton oxycodone Ericka Clinton Allergies Allergy/AdvReac Type Severity Reaction Status Date / Time Iodinated Contrast Media Allergy Mild Verified 10/26/23 11:25 Penicillins [PENICILLINS] Allergy Unknown Verified 10/26/23 11:25 Discharge Plan Disposition Patient Disposition: Home, Self-Care Condition: Fair Discharge Order Discharge Orders: Discharge Order (Routine); Ordered 10/30/23 Ordered By: Ericka Clinton Follow up Plan Follow up with: Ericka Clinton DO [Staff Physician] - 2 weeks Prescriptions/Medication Reconciliation: New oxycodone 5 mg Tablet 5 mg PO Q4HP PRN (Reason: Moderate Pain (4-6)) Qty: 20 0RF ibuprofen 800 mg tablet 800 mg PO Q8H PRN (Reason: pain) Qty: 20 0RF Continued pantoprazole [Protonix] 40 mg tablet,delayed release (DR/EC) 40 mg PO DAILY Qty: 30 2RF potassium chloride 20 mEq tablet extended release 20 meq PO BID 3 Days Qty: 7 0RF Discontinued hydroxyzine pamoate [Vistaril] 25 mg capsule 25 mg PO Q8H PRN (Reason: anxiety) Qty: 20 0RF Problem Reconciliation Problems Reviewed?: Yes Patient Discharge Instructions ACTIVITY: Limited activity DIET: continue same diet and regular diet Additional Instructions: Discharge: 1. Take 800 mg Ibuprofen every 8 hours as needed for pain. You can also take 500-1000 mg of Tylenol in between doses, every 6-8 hours. If pain persists you can take Oxycodone 5 mg, 1 tablet every 4-6 hours or more as needed. 2. Nothing in the vagina for 6 weeks - no intercourse, douching or tampons. No tub baths/hot tubs or swimming pools - Drink plenty of fluids. - No strenuous activity or driving until released by your doctor. - Don't lift anything heavier than your . 3. Reasons to return to L&D or call On-Call doctor - fever (greater than 100.4) - heavy vaginal bleeding (soaking through 1 pad in less than 2 hours) - vaginal discharge (malodorous and/or purulent) - severe headaches not resolved by medication or rest and leg tenderness/edema 4. depression/blues - Normal to feel anxious/overwhelmed for first 2 weeks - Talk to your doctor if: severe anxiety, trouble bonding with baby, withdrawing from other family members, thoughts of harming yourself or others Patient Instructions: Depression, Hemorrhage, DI for , DI for Pre-eclampsia, [facility] Post Discharge Instructions Print Language: Slovenian Providers Primary Care Provider: Yaakov Cheatham Provider: Ericka Clinton Attending Provider: Ericka Clinton
[2023-10-30 10:42] VITALS: BP 118/70; PULSE 70; RESP 18; TEMP 36.7; O2SAT 100
[2023-10-31 07:03] VITALS: BP 120/79; PULSE 75; RESP 16; TEMP 37.1; O2SAT 100
--- NOTE | 2023-10-31 07:03 | EXP.ANES.II ---
[facility] Anesthesia Record Part II Anesthesia Record Part II Discharge Time: 20:35 Destination: Obstetric PACU nurse assessment reviewed?: Yes Patient Condition:: Good Anesthesia Complications:: None Swallowing reflex intact?: Yes Airway Patency: Patent Cyanosis?: No Blood Pressure: 120/79 SaO2: 100 Respiratory Rate: 16 Pulse Rate: 75 Temperature: 98.8 F Mental Status: Alert & Oriented Pain level:: 0 Nausea and/or vomitting:: None Intake, IV Amount: 0 Hydration: Adequate
[2023-11-01 10:10] LABS: Rapid Plasma Reagin Ab Titer Non Reactive titer (NonRea<1:1)
== END 2023-10-30 11:08 | disposition home or self-care (01) | DRG 785 ==
LOC: OBOUT 16:00 → OB 16:00
PROVIDERS: Admitting Provider Obstetrics & Gynecology; PCP Internal Medicine; Visit Provider Obstetrics & Gynecology
PROC: 10D00Z1 Extraction of Products of Conception, Low, Open Approach (ICD-10-PCS; CPT 59514; principal; 2023-10-29 19:00)
DX: O34.211 Maternal care for low transverse scar from previous cesarean delivery (principal); O14.94 Unspecified pre-eclampsia, complicating childbirth; Z37.0 Single live birth; O99.013 Anemia complicating pregnancy, third trimester; D64.9 Anemia, unspecified; Z30.2 Encounter for sterilization; Z3A.37 37 weeks gestation of pregnancy; N85.8 Other specified noninflammatory disorders of uterus
CPT/HCPCS: 59514; 58700; 36415; 59025; 80053; 80307; 81001; 82570; 84156; 84550; 85025; 85384; 85610; 85730; 86593; 86850; C9290; J1170; J1580; J1885; J2250; J2405; J3010; J7120